=== PATIENT | female | born 1940 | race Caucasian/White ===

== ENCOUNTER 2023-05-18 11:40 | Emergency (ER) | payer OTHER, SELFPAY ==
[2023-05-18 11:48] VITALS: BP 100/66
--- NOTE | 2023-05-18 13:40 | EDRN ---
Dena PAK in room w/pt at this time.
[2023-05-18] MEDS: DELTASONE 50 MG PO (14:21)
[2023-05-18] MEDS: VALIUM 5 MG PO (14:21)
[2023-05-18 14:23] VITALS: BMI 30.6
[2023-05-18 14:25] VITALS: BP 152/71
--- NOTE | 2023-05-18 15:28 | ED.GENMED ---
History of Present Illness
General
Chief Complaint: Back Pain
Source: patient
Exam Limitations: none
Time Seen by Provider: 05/18/23 13:23
Nursing documentation reviewed up to this point in time: agreed with
Travel History
Have you had any contact with someone who has COVID-19?: No
Do you have any symptoms of coronavirus? Fever > 100 degrees, chills, cough, shortness of breath, sore throat, loss of taste or smell, muscle aches, or headache?: No
History of Present Illness
History of Present Illness:
81-year-old female with past medical history of diabetes presenting to the emergency department today with concerns of left-sided lumbar discomfort that started upon awakening 2 days ago. Has been taking Advil without relief. Denies incontinence
numbness weakness no trauma pain specifically worse with specific movements and different positioning.
Past History
Past History
ED Past Medical History: HTN and NIDDM
ED Past Surgical History: Cholecystectomy
Social History
Tobacco: Non-smoker
Alcohol: None
Drug: None
Personal:
Living: with family
Review of Systems
Review of Systems
Allergies reviewed?: Yes
All Other Systems: ROS reviewed and negative except as documented in HPI and ROS
Phy Exam
Physical Exam
Physical Exam:
GENERAL: Alert , in no apparent distress
EYE: pupils equal and reactive
NECK: Supple, no significant adenopathy.
ENT: o/p clr, mmm.
CARDIAC: Regular rate and rhythm .
LUNGS: Clear breath sounds bilaterally, no acute respiratory distress, no wheezes/rales/rhonchi
ABDOMEN: Soft, without focal tenderness, no r/g, no cvat
NEUROLOGICAL: Alert and oriented, no focal neuro deficits
SKIN: Warm and dry, skin intact.
MUSCULOSKELETAL: No edema, well perfused.
PSYCH: Normal and appropriate interaction.
Course
Orders/Labs/Results
Orders:
Orders
05/18/23 11:50
Lumbar Spine Complete, 4 View [CR Lumbar Spine Comp Min 4 Vw*] Urgent
Comment:
Reason For Exam: back pain
05/18/23 13:51
Diazepam [Valium] 5 mg PO NOW STA
Prednisone [Deltasone] 50 mg PO NOW STA
Vital Signs
Initial and Last Documented VS:
Initial Vital Signs
Temp Pulse Resp BP Pulse Ox
97.6 F 65 22 100/66 100
05/18/23 11:48 05/18/23 11:48 05/18/23 11:48 05/18/23 11:48 05/18/23 11:48
Last Documented Vital Signs
Temp Pulse Resp BP Pulse Ox
97.6 F 64 16 152/71 95
05/18/23 11:48 05/18/23 14:25 05/18/23 14:25 05/18/23 14:25 05/18/23 14:25
MDM/Problems Addressed
MDM/Problems Addressed:
83-year-old female presenting to the emergency department today with concerns of left-sided lumbar discomfort over the past 2 days. Specifically made worse with movement and positioning. Denies any bowel or bladder dysfunction numbness or weakness
to the lower extremities. Symptoms seem to be consistent with mechanical back discomfort. Patient was given Valium for muscle laxation as well as a steroid to help with inflammation.
*Critical Care Note
Total Time (30-74mins, 75-104mins- exclusive of procedures): Not Applicable
ED Attending Note
-
Portions of this chart may have been created with voice recognition software.� Occasional wrong word or��sound alike� substitutions may have occurred due to the inherent limitations of voice recognition software.
Discharge Plan
Departure
Patient Disposition: Home (Routine Discharge)
Date of Disposition: 05/18/23
Time of Disposition: 15:53
Patient with high blood pressure during this ER visit?: No
Condition: Good
Covid-19: Not Applicable
Discharge Problem:
Low back pain
Instructions: Low Back Pain (DC)
Prescriptions:
New
tizanidine [Zanaflex] 4 mg capsule
4 mg PO Q8H PRN (Reason: muscle spasticity) Qty: 7 0RF
prednisone 20 mg tablet
40 mg PO DAILY 4 Days Qty: 8 0RF
No Action
multivitamin [Multi-Day] 1 EACH tablet
1 ea PO DAILY
loratadine-pseudoephedrine [Loratadine-D] 1 EACH tablet extended release 24 hr
1 ea PO PRN PRN (Reason: allergies)
sennosides [senna] 1 TABLET tablet
2 tab PO BID 0RF
acetaminophen 325 MG tablet
650 mg PO QID 0RF
glimepiride 2 MG tablet
2 mg PO DAILY 0RF
magnesium hydroxide 30 ML suspension
30 ml PO HS 0RF
aspirin 325 MG tablet,delayed release (DR/EC)
325 mg PO DAILY 0RF
mupirocin 1 APPLIC ointment
1 applic intranasal BID Qty: 1 0RF
Rx Instructions:
use tonight 11/19/17, then stop
oxycodone 5 MG tablet
5 mg PO Q4HPRN PRN (Reason: moderate-severe pain) Qty: 60 0RF
Rx Instructions:
R NESSA
ongoing therapy
1 tab moderate pain or 2 tabs if severe
ibuprofen 200 MG tablet
400 mg PO PRN PRN (Reason: breakthru pain) Qty: 1 0RF
Rx Instructions:
TAKE WITH FOOD
DO NOT TAKE WITHIN 2H OF ASA---BLOCKS ABSORPTION
docusate sodium 100 MG capsule
100 mg PO BID Qty: 1 0RF
bisacodyl [OneLAX Bisacodyl] 10 MG suppository
10 mg [place] DAILYPRN PRN (Reason: CONSTIPATION) Qty: 1 0RF
bisacodyl 5 MG tablet,delayed release (DR/EC)
10 mg PO DAILYPRN PRN (Reason: CONSTIPATION) Qty: 1 0RF
Referrals:
Ruslan Olvera MD [Active] - Follow up in 1 week
Dana Dewitt MD [Family Provider] -
Activity Restrictions/Additional Instructions:
You came to the emergency department today with concerns of low back pain. Here you an x-ray that showed a large amount of arthritis. This could be responsible for your symptoms. Please take medications as prescribed and follow-up closely with
the back doctor for ongoing symptoms. Return to the emergency department any worsening, new or concerning symptoms.
Interventions
Interventions:
*Risk Screen - Suicide Last Done: 05/18/23 11:45
*General Assessment Last Done: 05/18/23 11:45
*Neglect/Abuse Screening Last Done: 05/18/23 11:45
*ED COVID-19 Vaccine History Last Done: 05/18/23 14:23
ED-Musculoskeletal Assessment Last Done: 05/18/23 14:23
--- NOTE | 2023-05-18 15:33 | EDRN ---
Pt ambulated w/ daughter to BR and back to recliner chair at this time. This RN informed Dena PAK that pt ambulated and pain is no longer 10+/10 w/ movement but now a 4/10 per pt.
--- NOTE | 2023-05-18 15:48 | EDRN ---
Dena PAK in room w/ pt at this time.
== END 2023-05-18 16:14 | disposition home or self-care (01) ==
LOC: EMR 11:40
PROVIDERS: EMERGENCY PHYSICIAN Emergency Medicine; FAMILY PHYSICIAN Family Medicine
DX: M54.50 Low back pain, unspecified (principal); E11.9 Type 2 diabetes mellitus without complications
CPT/HCPCS: 99283; 72110

== ENCOUNTER 2024-03-13 20:43 | Inpatient (IN) | payer OTHER, SELFPAY ==
[2024-03-13] VITALS (9 sets, daily range): BP systolic 137–168; BP diastolic 64–88; BMI 32.9; BMI 32.6
[2024-03-13 15:06] LABS: % Basophils 0.4 % (0-2); % Immature Granulocytes 0.3 % (0-0.5); % Lymphocytes 27.2 % (20.5-51.1); % Monocytes 12.3 % (1.7-9.3); % Neutrophils 58.8 % (42.2-75.2); Absolute Eosinophils 0.1 10^3/uL (0-0.7); Absolute Lymphocytes 1.9 10^3/uL (1.2-3.4); Absolute Monocytes 0.9 10^3/uL (0.1-0.6); Absolute Neutrophils 4.2 10^3/uL (1.4-6.5); Hematocrit 42.8 % (37.0-47.0); Hemoglobin 14.7 g/dL (12.0-16.0); Mean Corp Hgb Conc. 34.3 g/dL (33.0-37.0); Mean Corpuscular Hgb 30.2 pg (27.0-31.0); Mean Corpuscular Volume 87.9 fL (81.0-99.0); Mean Platelet Volume 9.3 fL (7.4-10.4); Nucleated Red Blood Cells % 0 %; Platelet Count 260 10^3/uL (130-400); Red Blood Cell Count 4.87 10^6/uL (4.20-5.40); Red Cell Dist. Width 13.4 % (11.5-14.5); White Blood Cell Count 7.1 10^3/uL (4.8-10.8)
[2024-03-13 15:23] LABS: ALT (SGPT) 27 U/L (0-35); AST (SGOT) 35 U/L (14-36); Albumin 4.1 g/dl (3.5-5.0); Alkaline Phosphatase 73 U/L (38-126); Blood Urea Nitrogen 15 mg/dl (7-17); Calcium 9.1 mg/dl (8.4-10.2); Carbon Dioxide 23 mmol/L (22-30); Chloride 99 mmol/L (98-107); Glucose 153 mg/dl (70-99); Lipase 35 U/L (23-300); Potassium 4.6 mmol/L (3.5-5.1); Sodium 132 mmol/L (135-145); Total Bilirubin 0.7 mg/dl (0.2-1.3); Total Protein 6.7 g/dl (6.3-8.2); eGFR > 60.00
--- NOTE | 2024-03-13 17:28 | ED.GENMED ---
History of Present Illness
General
Chief Complaint: Abdominal Symptoms
Time Seen by Provider: 03/13/24 17:05
History of Present Illness
History of Present Illness:
84-year-old female with history of diabetes presenting to the emergency department for vomiting and diarrhea. Patient reports symptoms for the past 4 days. Notes sick contacts with similar symptoms, believes that she has the 'GI bug '. Reports
frequency of diarrhea has decreased, last episode of vomiting was this morning. She has had overall decreased p.o. intake. Denies associated chest pain or difficulty breathing. Reports generalized abdominal discomfort, particularly in the upper
abdomen, described as burning. Denies fever. Denies any abdominal surgeries in the past. Denies additional acute medical complaints
Past History
Past History
ED Past Medical History: HTN and NIDDM
ED Past Surgical History: Cholecystectomy
Social History
Tobacco: Non-smoker
Alcohol: None
Drug: None
Personal:
Living: with family
Phy Exam
Physical Exam
Physical Exam:
General: Well-appearing, no clinical signs of dehydration, nontoxic and in no acute distress
HEENT: protecting airway
Neck: appears supple
CV: Normal heart rate, regular rhythm
Resp: No accessory muscle use, no increased work of breathing, lungs clear to auscultation bilaterally
Abd: Soft and non-distended, generalized nonfocal tenderness
Extremities: No deformities, no swelling
Neuro: alert, no focal neurologic deficit
: deferred
Rectal: deferred
Psych: Normal affect
Skin: Intact
Course
Orders/Labs/Results
Orders:
Orders
03/13/24 14:34
Electrocardiogram (*1) Urgent
Reason for Study: Abdominal Pain
EKG- Treatment ONCE
03/13/24 14:51
Complete Blood Count/With Diff Urgent
Comprehensive Metabolic Panel Urgent
Lipase Urgent
03/13/24 17:24
CT Abd/pelvis W Iv Cont Urgent
Comment:
Reason For Exam: generalized pain, suspected viral gastro
0.9% Sodium Chloride 1000 ml [Nss] 1,000 ml IV BOLUS
Famotidine [Pepcid] 20 mg IV NOW STA
Ketorolac [Toradol] 15 mg IV NOW STA
03/13/24 17:36
Urinalysis Reflex To Culture Urgent
Date Specimen was Collected: 03/13/24
Time Specimen was Collected: 17:30
Urine Microscopic Reflex Cult Urgent
Urine Culture Urgent
LAURA Source: U
Specimen Description:
Date Specimen was Collected: 03/13/24
Time Specimen was Collected: 17:30
03/13/24 17:45
Ondansetron Injectable [Zofran] 4 mg IV NOW STA
Abnormal Lab Results
03/13/24 03/13/24
14:51 17:36
Absolute Monos (auto) 0.9 H 10^3/uL
(0.1-0.6)
Monocytes % 12.3 H %
(1.7-9.3)
Sodium 132 L mmol/L
(135-145)
Glucose 153 H mg/dl
(70-99)
Urine Ketones 3+ A
(Negative)
Ur Occult Blood Reflex 3+ A
(Negative)
Urine Nitrite (Reflex) Positive A
(Negative)
Urine Bilirubin 1+ A
(Negative)
Leukocyte Esterase Rfl 2+ A
(Negative)
Urine RBC 3-6 A /HPF
(0-2)
Urine WBC (Reflex) 50-60 A /HPF
(0-5)
Urine Bacteria (Reflex) Many A
(Negative)
Urine Albumin (Reflex) 1+ A
(Neg - Trace)
03/13/24 14:51
03/13/24 14:51
Vital Signs
Initial and Last Documented VS:
Initial Vital Signs
Temp Pulse Resp BP Pulse Ox
97.9 F 79 16 168/84 99
03/13/24 14:45 03/13/24 14:45 03/13/24 14:45 03/13/24 14:45 03/13/24 14:45
Last Documented Vital Signs
Temp Pulse Resp BP Pulse Ox
97.9 F 82 14 137/79 95
03/13/24 14:45 03/13/24 18:01 03/13/24 18:01 03/13/24 18:01 03/13/24 18:01
MDM/Problems Addressed
MDM/Problems Addressed:
84-year-old female presenting for 4 days of vomiting and diarrhea. Vital signs on arrival significant for mild hypertension.
On exam patient is resting comfortably, no acute distress or discomfort. She is nontoxic in appearance. Ultimately suspect viral gastroenteritis. Lower suspicion for serious intra-abdominal process or infection, however does have generalized
nonfocal tenderness of the abdomen. Suspected soreness from vomiting and diarrhea. However given age and duration of symptoms will obtain laboratory analysis and CT imaging. Toradol administered for pain. Will also administer Pepcid with
suspected component of gastritis from emesis. Will administer fluids for suspected mild dehydration from decreased p.o. intake. Lower suspicion for C. difficile colitis, notes infrequent episodes of diarrhea, formed
17:10- Labs are unremarkable.
18:00 -patient had a large episode of emesis. Zofran administered
19:00-CT shows developing small bowel obstruction. Consistent with symptoms. Will admit to hospital.
*Critical Care Note
Total Time (30-74mins, 75-104mins- exclusive of procedures): Not Applicable
ED Attending Note
-
Portions of this chart may have been created with voice recognition software.� Occasional wrong word or��sound alike� substitutions may have occurred due to the inherent limitations of voice recognition software.
Discharge Plan
Departure
Prescriptions:
No Action
multivitamin [Multi-Day] 1 EACH tablet
1 ea PO DAILY
loratadine-pseudoephedrine [Loratadine-D] 1 EACH tablet extended release 24 hr
1 ea PO PRN PRN (Reason: allergies)
sennosides [senna] 1 TABLET tablet
2 tab PO BID 0RF
acetaminophen 325 MG tablet
650 mg PO QID 0RF
glimepiride 2 MG tablet
2 mg PO DAILY 0RF
magnesium hydroxide 30 ML suspension
30 ml PO HS 0RF
aspirin 325 MG tablet,delayed release (DR/EC)
325 mg PO DAILY 0RF
mupirocin 1 APPLIC ointment
1 applic intranasal BID Qty: 1 0RF
Rx Instructions:
use tonight 11/19/17, then stop
oxycodone 5 MG tablet
5 mg PO Q4HPRN PRN (Reason: moderate-severe pain) Qty: 60 0RF
Rx Instructions:
R NESSA
ongoing therapy
1 tab moderate pain or 2 tabs if severe
ibuprofen 200 MG tablet
400 mg PO PRN PRN (Reason: breakthru pain) Qty: 1 0RF
Rx Instructions:
TAKE WITH FOOD
DO NOT TAKE WITHIN 2H OF ASA---BLOCKS ABSORPTION
docusate sodium 100 MG capsule
100 mg PO BID Qty: 1 0RF
bisacodyl [OneLAX Bisacodyl] 10 MG suppository
10 mg AK DAILYPRN PRN (Reason: CONSTIPATION) Qty: 1 0RF
bisacodyl 5 MG tablet,delayed release (DR/EC)
10 mg PO DAILYPRN PRN (Reason: CONSTIPATION) Qty: 1 0RF
tizanidine [Zanaflex] 4 mg capsule
4 mg PO Q8H PRN (Reason: muscle spasticity) Qty: 7 0RF
prednisone 20 mg tablet
40 mg PO DAILY 4 Days Qty: 8 0RF
Referrals:
Dana Dewitt MD [Family Provider] -
Interventions
Interventions:
*Risk Screen - Suicide Last Done: 03/13/24 14:45
*General Assessment Last Done: 03/13/24 17:06
*Neglect/Abuse Screening Last Done: 03/13/24 14:45
ED- Fall Risk Assessment Last Done: 03/13/24 17:06
*ED COVID-19 Vaccine History Last Done: 03/13/24 17:06
FH-Liazuz-Iaycbagsol Assessment Last Done: 03/13/24 17:06
Discharge Date and Time
Print Language: AZERI
[2024-03-13] MEDS: NSS 1000 IV ×2 (17:36→21:27)
[2024-03-13] MEDS: PEPCID 20 MG IV (17:39)
[2024-03-13] MEDS: TORADOL 15 MG IV (17:40)
[2024-03-13 17:44] LABS: Urine Albumin 1+ (Neg - Trace); Urine Bilirubin 1+ (Negative); Urine Character Very Cloudy (Clear); Urine Color Yellow; Urine Glucose Negative (Negative); Urine Ketone 3+ (Negative); Urine Leukocyte 2+ (Negative); Urine Nitrite Positive (Negative); Urine Occult Blood 3+ (Negative); Urine Specific Gravity 1.025 (<1.030); Urine Urobilinogen 1+ (Neg - 1+)
[2024-03-13 17:50] LABS: Urine Squamous Cell 0-2 /LPF (Few)
[2024-03-13 17:52] LABS: Urine Bacteria Many (Negative); Urine White Cell 50-60 /HPF (0-5)
[2024-03-13] MEDS: ZOFRAN 4 MG IV (18:01)
--- NOTE | 2024-03-13 20:07 | HPS.HSE ---
Family Physician
-
Family Physician: Dana Dewitt
Chief Complaint
-
Abd Pain, N/V/D
History of Present Illness
Patient is an 84y F with PMH significant for DM-II who presents to ED complaining of abdominal pain and N/V/D x 4 days. Patient states that family members are also ill with GI complaints. She developed N/V/D 4 days ago. The following 2 days,
patient had increased abdominal pain and distention - but no emesis or diarrhea. She had very poor appetite and was unable to tolerate PO intake due to abdominal discomfort and nausea.
Last night and today patient had a few episodes of small volume, watery stools. She had emesis at home and again here in the ED - described as 'dark' and 'bitter'.
With ongoing symptoms and worsening abdominal pain, patient presented to the ED for further evaluation.
Patient denies any history of bowel obstructions, etc.
She denies any fevers / chills, urinary complaints, bloody stools, etc.
Medical History
Past Medical History
Past Medical History: Reports Other
Additional Past Medical History:
DM-II
Obesity
Past Surgical History: Reports Other
Additional Past Surgical History:
Cholecystectomy
Vaginal Hysterectomy
Bilateral NESSA
Bilateral TKA
Social History
Tobacco: Non-smoker
Alcohol: None
Drug: None
Family History
Family History: Not pertinent
Allergies / Home Medications
Allergies reflects when Allergies were last updated in [facility].
Home Medications with original date entered in [facility]
Allergy/Medication List:
Allergies
Allergy/AdvReac Type Severity Reaction Status Date / Time
Penicillins Allergy Severe Rash, Verified 03/13/24 14:45
Swelling
of tongue
sulfamethoxazole AdvReac Unknown Verified 03/13/24 14:45
[From Bactrim]
trimethoprim [From Bactrim] AdvReac Unknown Verified 03/13/24 14:45
Home Medications
Raspberry Herbal Supplement 1 cap PO DAILY 03/13/24
diphenhydramine 25 mg-acetaminophen 500 mg tablet (Acetaminophen PM) 1 tab PO HSPRN PRN sleep 03/13/24
glimepiride 4 mg tablet 4 mg PO DAILY 03/13/24
pioglitazone 30 mg tablet 30 mg PO DAILY 03/13/24
Review of Systems
-
History Source: Patient
A 12 point ROS was completed and negative except as noted: Yes
Constitutional: Reports Fatigue; Denies Fever or Chills
Respiratory: Denies Cough or Trouble Breathing
Cardiac: Denies Chest Pain or Palpitations
Abdomen/GI: Reports Abdominal Pain, Nausea, Vomiting, Diarrhea and Anorexia; Denies Bloody Stools or Black Stools
: Denies Dysuria or Frequency
Musculoskeletal: Denies Joint Pain or Edema
Neurological: Denies Dizzy or Headache
Physical Exam
Vital Signs
Vital Signs
Temp Pulse Resp BP Pulse Ox
97.9 F 91 21 151/64 96
03/13/24 14:45 03/13/24 19:00 03/13/24 19:00 03/13/24 19:00 03/13/24 19:00
Physical Exam
General: Other (84y F in no acute distress.)
HEENT: Moist mucous membranes and PERRLA
Respiratory: Other (Few rales at bases - otherwise clear.)
Cardiac: S1/S2 and Regular Rhythm (with ectopy); No Murmur
GI: Other (Abdomen is distended. High pitched bowel sounds. Mild tenderness diffusely without rebound / guarding.)
Musculoskeletal: No Clubbing, No Cyanosis and No Edema
Neuro: AO x 3
Laboratory Results
-
03/13/24 14:51
03/13/24 14:51
Laboratory Results
Total Bilirubin 0.7 mg/dl (0.2-1.3) 03/13/24 14:51
AST 35 U/L (14-36) 03/13/24 14:51
ALT 27 U/L (0-35) 03/13/24 14:51
Alkaline Phosphatase 73 U/L (38-126) 03/13/24 14:51
Lipase 35 U/L (23-300) 03/13/24 14:51
Impression/Plan
-
A/P: Patient is an 84y F with PMH significant for DM-II who presents to ED complaining of abdominal pain and N/V/D x 4 days.
Enteritis - Suspected Norovirus
Partial Small Bowel Obstruction
- Admit for further evaluation and treatment.
- Multiple sick contacts and initial symptoms of N/V/D with some / few loose stools persisting.
- NPO for now. IVF support, Antiemetics, etc.
- CT with dilated loops of bowel which could be consistent with enteritis; however, ? transition in the RLQ and high pitched bowel sounds, etc concerning for partial obstruction.
- Patient is continuing to pass stools so doubt complete SBO.
- Follow for improvement with supportive care.
- Consider NG decompression and Surgical evaluation if symptoms worsen or do not improve.
DM-II
- Stable. Continue to hold PO medications.
- Follow glucose and cover with SSI as needed.
- Update A1C.
DVT Prophylaxis: SCDs
Code Status: Full
[2024-03-14 03:22] VITALS: BP 126/64
--- NOTE | 2024-03-14 04:48 | PTCARENOTE ---
late entry: received pt at 2114. admitted to 2123, placed on tele #[id number]. oriented to room, call bradshaw and POC. pt verb understanding. admission assessment completed.
[2024-03-14 05:07] VITALS: BMI 33.2
[2024-03-14] MEDS: NSS 1000 IV ×2 (05:54→13:39)
[2024-03-14 07:03] LABS: Glucose - Point of Care 99 mg/dl (70-99)
[2024-03-14 07:17] LABS: Hematocrit 39.1 % (37.0-47.0); Hemoglobin 13.1 g/dL (12.0-16.0); Mean Corp Hgb Conc. 33.5 g/dL (33.0-37.0); Mean Corpuscular Hgb 30.3 pg (27.0-31.0); Mean Corpuscular Volume 90.3 fL (81.0-99.0); Mean Platelet Volume 9.7 fL (7.4-10.4); Platelet Count 237 10^3/uL (130-400); Red Blood Cell Count 4.33 10^6/uL (4.20-5.40); Red Cell Dist. Width 13.4 % (11.5-14.5); White Blood Cell Count 7.2 10^3/uL (4.8-10.8)
[2024-03-14 07:25] VITALS: BP 150/69
[2024-03-14 07:27] LABS: Blood Urea Nitrogen 15 mg/dl (7-17); Calcium 8.4 mg/dl (8.4-10.2); Carbon Dioxide 21 mmol/L (22-30); Chloride 105 mmol/L (98-107); Estimated Creatinine Clearance 61 ml/min; Glucose 98 mg/dl (70-99); Potassium 4.5 mmol/L (3.5-5.1); Sodium 136 mmol/L (135-145); eGFR > 60.00
[2024-03-14] MEDS: NOVOLOG FLEXPEN-LOW RESISTANCE SC ×3 (07:31→17:47)
--- NOTE | 2024-03-14 08:41 | W.PN.HOSP.TC ---
Today's Communication/Plan
-
See bold
Assessment / Plan
Assessment / Plan
84y F with PMH significant for DM-II who presents to ED complaining of abdominal pain and N/V/D x 4 days. Patient states that family members are also ill with GI complaints. She developed N/V/D 4 days ago. The following 2 days, patient had
increased abdominal pain and distention - but no emesis or diarrhea. She had very poor appetite and was unable to tolerate PO intake due to abdominal discomfort and nausea.
Last night and today patient had a few episodes of small volume, watery stools. She had emesis at home and again here in the ED - described as 'dark' and 'bitter'.
With ongoing symptoms and worsening abdominal pain, patient presented to the ED for further evaluation.
Patient denies any history of bowel obstructions, etc.
She denies any fevers / chills, urinary complaints, bloody stools, etc.
Acute enteritis
Acute partial Small Bowel Obstruction
- Multiple sick contacts and initial symptoms of N/V/D with some / few loose stools persisting.
- CT with dilated loops of bowel which could be consistent with enteritis; however, ? transition in the RLQ and high pitched bowel sounds, etc concerning for partial obstruction.
- Patient is continuing to pass stools so doubt complete SBO.
- Trial of clear liquid diet, IV fluids, antiemetics as needed
DM-II
- Stable. Continue to hold PO medications.
- Follow glucose and cover with SSI as needed.
- A1C 7.0
Hyponatremia
- Resolved, monitor
Obesity due to excess calories
- Affects all aspects of care
DVT Prophylaxis: Subcu Lovenox
Code Status: Full
Updated family at bedside 03/14
Total time spent to see the patient on the floor, examine the patient, review data and lab results, discuss treatment plan with patient, nursing staff around 50 minutes.
Physical Exam
General: Obese, no acute distress
HEENT: Normocephalic, Atraumatic, EOMI, MMM
Respiratory: Clear to Auscultation bilaterally
Cardiac: Normal S1/S2, Regular Rate and Rhythm
GI: Soft, Nontender, Nondistended, Normal Bowel Sounds
Extremities: No Clubbing, Cyanosis, or Edema
Neuro: Nonfocal/Grossly Intact
Psych: Calm, Cooperative
Derm: No Visible lesions
Anticipated Discharge: 24 - 48 hours
Subjective/Interval History
-
Date of Service: March 14, 2024
Nausea and vomiting resolved. Denies abdominal pain. She is passing gas. No bowel movement. No chest pain, no shortness of breath. No fever.
Objective Data
-
Labs:
Laboratory Results
03/14/24
06:52
WBC 7.2
Hgb 13.1
Hct 39.1
Plt Count 237
Sodium 136
Potassium 4.5
Chloride 105
Carbon Dioxide 21 L
BUN 15
Creatinine 0.8
Glucose 98
Calcium 8.4
Vital Signs:
Vital Signs
Temp Pulse Resp BP Pulse Ox
98.1 F 72 18 150/69 95
03/14/24 07:25 03/14/24 07:25 03/14/24 07:25 03/14/24 07:25 03/14/24 07:25
I&O
03/13/24 03/14/24 03/15/24
06:59 06:59 06:59
Intake Total 1125 / 1125
Balance 1125 / 1125
--- NOTE | 2024-03-14 10:36 | CM ---
Patient seen at bedside with & daughter
IA completed
Lives with in a 1 story home, 3 steps to enter
PLOF: Independent, no assistive device used for ambulation
DME: Walker, cane, shower chair, glucometer
Has had [facility] in past - denies rehab
Denies insecurities
PCP: Dana Dewitt
Pharmacy: [facility]
PLAN: Home, currently no needs anticipated
[2024-03-14 11:40] VITALS: BP 141/60
[2024-03-14 13:21] LABS: Glucose - Point of Care 164 mg/dl (70-99)
[2024-03-14 15:32] VITALS: BP 180/79
[2024-03-14 17:31] LABS: Glucose - Point of Care 122 mg/dl (70-99)
[2024-03-14] MEDS: LOVENOX 40 MG SC (18:01)
[2024-03-14] MEDS: TYLENOL 650 MG PO (18:05)
[2024-03-14 18:29] VITALS: BP 158/65
[2024-03-14 21:14] LABS: Glucose - Point of Care 150 mg/dl (70-99)
[2024-03-14 23:10] VITALS: BP 145/62
[2024-03-15] MEDS: NSS 1000 IV (02:13)
[2024-03-15 05:10] VITALS: BMI 33.2
[2024-03-15 08:13] LABS: Blood Urea Nitrogen 9 mg/dl (7-17); Calcium 8.4 mg/dl (8.4-10.2); Carbon Dioxide 21 mmol/L (22-30); Chloride 106 mmol/L (98-107); Estimated Creatinine Clearance 61 ml/min; Glucose 111 mg/dl (70-99); Phosphorus 3.2 mg/dl (2.5-4.5); Potassium 4.7 mmol/L (3.5-5.1); Sodium 135 mmol/L (135-145); eGFR > 60.00
[2024-03-15 08:18] LABS: Glucose - Point of Care 117 mg/dl (70-99)
[2024-03-15 08:32] VITALS: BP 152/70
[2024-03-15] MEDS: NOVOLOG FLEXPEN-LOW RESISTANCE SC ×2 (08:41→17:37)
--- NOTE | 2024-03-15 08:53 | W.PN.HOSP.TC ---
Today's Communication/Plan
-
Advance to solids for lunch
Repeat obstruction series in the afternoon
Possible discharge if tolerating lunch
Assessment / Plan
Assessment / Plan
84y F with PMH significant for DM-II who presents to ED complaining of abdominal pain and N/V/D x 4 days. Patient states that family members are also ill with GI complaints. She developed N/V/D 4 days ago. The following 2 days, patient had
increased abdominal pain and distention - but no emesis or diarrhea. She had very poor appetite and was unable to tolerate PO intake due to abdominal discomfort and nausea.
Last night and today patient had a few episodes of small volume, watery stools. She had emesis at home and again here in the ED - described as 'dark' and 'bitter'.
With ongoing symptoms and worsening abdominal pain, patient presented to the ED for further evaluation.
Patient denies any history of bowel obstructions, etc.
She denies any fevers / chills, urinary complaints, bloody stools, etc.
Acute enteritis
Acute partial Small Bowel Obstruction
- Multiple sick contacts and initial symptoms of N/V/D with some / few loose stools persisting.
- CT with dilated loops of bowel which could be consistent with enteritis; however, ? transition in the RLQ and high pitched bowel sounds, etc concerning for partial obstruction.
- Patient is continuing to pass stools so doubt complete SBO.
- Patient is currently tolerating a full liquid diet without nausea, vomiting, or abdominal pain. Advance to solids for lunch
- Repeat obstruction series in the afternoon
- Possible discharge if tolerating lunch
DM-II
- Stable. Continue to hold PO medications.
- Follow glucose and cover with SSI as needed.
- A1C 7.0
Hyponatremia
- Resolved, monitor
Obesity due to excess calories
- Affects all aspects of care
DVT Prophylaxis: Subcu Lovenox
Code Status: Full
Updated family at bedside 03/15
Total time spent to see the patient on the floor, examine the patient, review data and lab results, discuss treatment plan with patient, nursing staff around 51 minutes.
Physical Exam
General: Obese, no acute distress
HEENT: Normocephalic, Atraumatic, EOMI, MMM
Respiratory: Clear to Auscultation bilaterally
Cardiac: Normal S1/S2, Regular Rate and Rhythm
GI: Soft, Nontender, Nondistended, Normal Bowel Sounds
Extremities: No Clubbing, Cyanosis, or Edema
Neuro: Nonfocal/Grossly Intact
Psych: Calm, Cooperative
Derm: No Visible lesions
Anticipated Discharge: Within 24 hours
Subjective/Interval History
-
Date of Service: March 15, 2024
Patient tolerated her full liquid diet without nausea. No vomiting. No abdominal pain. No fever. She is passing gas. No bowel movement.
Objective Data
-
Labs:
Laboratory Results
03/15/24
07:25
Sodium 135
Potassium 4.7
Chloride 106
Carbon Dioxide 21 L
BUN 9
Creatinine 0.8
Glucose 111 H
Calcium 8.4
Vital Signs:
Vital Signs
Temp Pulse Resp BP Pulse Ox
98.2 F 71 16 152/70 94
03/15/24 08:32 03/15/24 08:32 03/15/24 08:32 03/15/24 08:32 03/15/24 08:32
I&O
03/14/24 03/15/24 03/16/24
06:59 06:59 06:59
Intake Total 5 / 1125 2179 / 2179
Balance 1125 / 1125 2179 / 2179
--- NOTE | 2024-03-15 10:48 | CM ---
CM reviewed chart, patient seen bedside on phone- reports no needs to CM upon discharge. Patient confirms she has transportation home and support at home. IMM verbally reviewed, declined copy of form, placed in chart. CM will continue to follow for
all discharge planning needs.
Plan; home no needs.
[2024-03-15 11:51] LABS: Glucose - Point of Care 181 mg/dl (70-99)
[2024-03-15 11:53] VITALS: BP 165/81
[2024-03-15] MEDS: NOVOLOG FLEXPEN-LOW RESISTANCE 1 UNITS SC (12:11)
[2024-03-15] MEDS: MIRALAX 17 GRAMS PO (13:07)
[2024-03-15] MEDS: DULCOLAX 10 MG RECTAL (13:07)
[2024-03-15] MEDS: ZOFRAN 4 MG IV (14:48)
--- NOTE | 2024-03-15 15:40 | CON.GS ---
Medical History
-
Chief Complaint: Abdominal pain, nausea, emesis
History of Present Illness:
Patient is an 84 yo F with a PMH of obesity, NIDDM, s/p vaginal hysterectomy, and s/p laparoscopic cholecystectomy who presented to with 4 to 5 days of abdominal pain, distention, nausea, vomiting. At the time she was having loose liquid stools
and attributed her symptoms to a gastroenteritis. She has multiple sick contacts who have had GI issues. She was admitted overnight and was initially passing flatus and improving. She was trialed on a clear liquid diet and then solid foods this
afternoon. Since then she has had recurrence of crampy abdominal pain as well as belching, nausea, vomiting. She continues to pass flatus. No BM since admission. She denies any prior bowel obstructions. No clear dietary indiscretion.
Past Medical History
Past Medical History: NIDDM and Other (Obesity)
Past Surgical History: Cholecystectomy (Laparoscopic cholecystectomy) and Gynecological (Vaginal hysterectomy)
Social History
Tobacco: Non-Smoker
Alcohol: None
Drug: None
Family History
Family History: Reviewed & Not Pertinent
Allergies / Home Medications
Allergy/AdvReac Type Severity Reaction Status Date / Time
Penicillins Allergy Severe Rash, Verified 03/13/24 14:45
Swelling
of tongue
sulfamethoxazole AdvReac Unknown Verified 03/13/24 14:45
[From Bactrim]
trimethoprim [From Bactrim] AdvReac Unknown Verified 03/13/24 14:45
�Medication �Instructions �Recorded �Confirmed �Type
Raspberry Herbal Supplement 1 cap PO DAILY Supplement 03/13/24 03/13/24 History
diphenhydramine 25 1 tab PO HSPRN PRN sleep 03/13/24 03/13/24 History
mg-acetaminophen 500 mg tablet
(Acetaminophen PM)
glimepiride 4 mg tablet 4 mg PO DAILY Diabetes 03/13/24 03/13/24 History
pioglitazone 30 mg tablet 30 mg PO DAILY Diabetes 03/13/24 03/13/24 History
Review of Systems
-
A 10 point review of systems was completed, and was negative except as per HPI.
Physical Exam
Vital Signs
Temp Pulse Resp BP Pulse Ox
98.5 F 75 16 165/81 96
03/15/24 11:53 03/15/24 11:53 03/15/24 11:53 03/15/24 11:53 03/15/24 11:53
03/14/24 03/15/24 03/16/24
06:59 06:59 06:59
Actual Weight 93.259 kg 93.123 kg
Body Mass Index (BMI) 33.2
Lab Results
03/14/24 06:52
03/15/24 07:25
WBC 7.2 10^3/uL (4.8-10.8) 03/14/24 06:52
Hgb 13.1 g/dL (12.0-16.0) 03/14/24 06:52
Hct 39.1 % (37.0-47.0) 03/14/24 06:52
Plt Count 237 10^3/uL (130-400) 03/14/24 06:52
Abs Immat Gran (auto) 0.0 10^3/uL (0-0.05) 03/13/24 14:51
Neutrophils % 58.8 % (42.2-75.2) 03/13/24 14:51
Physical Exam
General: Pain and Other (Uncomfortable appearing)
HEENT: Normocephalic and Anicteric
Respiratory: Non Labored Respirations
Cardiac: Regular Rhythm
GI: Soft, Tender (Mild diffuse tenderness), Distended (Tympanitic), Obese and Other (Nonperitoneal (no rebound or guarding))
Musculoskeletal: No Edema
Skin: Warm and Dry
Neuro: Nonfocal/Grossly Intact
Data Reviewed
-
Radiology: Image Personally Visualized and interpreted and Report Reviewed by me
CT Scan: Image Personally Visualized and interpreted and Report Reviewed by me
Labs: Labs Reviewed by me
Assessment / Plan
-
Patient is an 84 yo F p/w high-grade partial SBO
The natural history and pathophysiology of bowel obstructions was reviewed. Possible that a underlying gastroenteritis has set off her symptoms. Most likely causes adhesions. Failure of dietary advancement throughout the day. Nausea and
excessive burping. No worrisome signs of bowel ischemia or perforation at this time. No need for emergent surgical intervention. Recommend medical management with NGT decompression, IVF, and bowel rest. Correct electrolytes. Minimize narcotics.
All questions answered. Daughter present for encounter.
-- NGT, repeat X-ray ordered post-placement
-- NPO, IVF
-- Correct lytes, minimize narcotics
-- Pain control: Tylenol, Toradol, IV Dilaudid PRN
[2024-03-15 15:54] VITALS: BP 153/74
[2024-03-15] MEDS: NSS IV (16:49)
[2024-03-15 17:24] LABS: Glucose - Point of Care 168 mg/dl (70-99)
[2024-03-15] MEDS: LOVENOX 40 MG SC (17:47)
[2024-03-15 19:20] VITALS: BP 163/72
[2024-03-15 23:18] VITALS: BP 151/70
[2024-03-16 00:28] LABS: Glucose - Point of Care 133 mg/dl (70-99)
[2024-03-16] MEDS: NSS 1000 IV ×2 (00:40→15:09)
[2024-03-16 03:52] VITALS: BP 104/75
[2024-03-16 05:08] VITALS: BMI 32.8
[2024-03-16 07:15] VITALS: BP 148/72
[2024-03-16 07:40] LABS: Glucose - Point of Care 135 mg/dl (70-99)
--- NOTE | 2024-03-16 07:48 | W.PN.HOSP.TC ---
Today's Communication/Plan
-
see bold
Assessment / Plan
Assessment / Plan
84y F with PMH significant for DM-II who presents to ED complaining of abdominal pain and N/V/D x 4 days. Patient states that family members are also ill with GI complaints. She developed N/V/D 4 days ago. The following 2 days, patient had
increased abdominal pain and distention - but no emesis or diarrhea. She had very poor appetite and was unable to tolerate PO intake due to abdominal discomfort and nausea.
Last night and today patient had a few episodes of small volume, watery stools. She had emesis at home and again here in the ED - described as 'dark' and 'bitter'.
With ongoing symptoms and worsening abdominal pain, patient presented to the ED for further evaluation.
Patient denies any history of bowel obstructions, etc.
She denies any fevers / chills, urinary complaints, bloody stools, etc.
Acute enteritis
Acute partial Small Bowel Obstruction
- Multiple sick contacts and initial symptoms of N/V/D with some / few loose stools persisting.
- CT with dilated loops of bowel which could be consistent with enteritis; however, ? transition in the RLQ and high pitched bowel sounds, etc concerning for partial obstruction.
- Patient is continuing to pass gas so doubt complete SBO
- NG tube inserted 03/15
- Appreciate general surgery input, continue NG tube, n.p.o., IV fluids
GERD
� Start PPI IV
Asymptomatic bacteriuria
-Denies dysuria, no fever, no leukocytosis
-Monitor off antibiotics
DM-II
- Stable. Continue to hold PO medications.
- Follow glucose and cover with SSI as needed.
- A1C 7.0
Hyponatremia
- Resolved, monitor
Obesity due to excess calories
- Affects all aspects of care
DVT Prophylaxis: Subcu Lovenox
Code Status: Full
Updated daughter at bedside 03/16
Total time spent to see the patient on the floor, examine the patient, review data and lab results, discuss treatment plan with patient, nursing staff around 50 minutes.
Physical Exam
General: Obese, no acute distress
HEENT: Normocephalic, Atraumatic, EOMI, MMM
Respiratory: Clear to Auscultation bilaterally
Cardiac: Normal S1/S2, Regular Rate and Rhythm
GI: Soft, nontender, mildly distended, hypoactive bowel sounds
Extremities: No Clubbing, Cyanosis, or Edema
Neuro: Nonfocal/Grossly Intact
Psych: Calm, Cooperative
Derm: No Visible lesions
Anticipated Discharge: 24 - 48 hours
Subjective/Interval History
-
Date of Service: March 16, 2024
C/o throat pain, and burning in her esophagus. Nausea and vomiting resolved. Denies abdominal pain. No fever. Denies dysuria.
Objective Data
-
Labs:
Laboratory Results
03/16/24
07:19
Sodium Pending
Potassium Pending
Chloride Pending
Carbon Dioxide Pending
BUN Pending
Creatinine Pending
Glucose Pending
Calcium Pending
Vital Signs:
Vital Signs
Temp Pulse Resp BP Pulse Ox
98.8 F 82 18 148/72 91
03/16/24 07:15 03/16/24 07:15 03/16/24 07:15 03/16/24 07:15 03/16/24 07:15
I&O
03/15/24 03/16/24 03/17/24
06:59 06:59 06:59
Intake Total 0 / 0 360 / 360
Output Total 400 / 400
Balance 2179 -40 / -40
[2024-03-16 08:00] LABS: Blood Urea Nitrogen 9 mg/dl (7-17); Calcium 8.5 mg/dl (8.4-10.2); Carbon Dioxide 24 mmol/L (22-30); Chloride 101 mmol/L (98-107); Estimated Creatinine Clearance 61 ml/min; Glucose 151 mg/dl (70-99); Potassium 3.9 mmol/L (3.5-5.1); Sodium 134 mmol/L (135-145); eGFR > 60.00
[2024-03-16] MEDS: MIRALAX PO (09:08)
[2024-03-16] MEDS: PROTONIX IV 40 MG IV (09:09)
[2024-03-16] MEDS: NSS (PRESERVATIVE FREE) 10 ML IV (09:09)
[2024-03-16] MEDS: TORADOL 15 MG IV ×2 (09:24→15:24)
--- NOTE | 2024-03-16 10:05 | W.PN.GS2 ---
Today's Communication / Plan
-
-- Continue nasogastric tube decompression for today
Assessment / Plan
-
Patient is an 84 yo F p/w high-grade partial SBO
AVSS
WBC remains normal
Clinically improved with increased flatus production and improved abdominal exam. Recommend continued NG decompression throughout the day, tentative plan for removal tomorrow if continues to show signs of improvement.
-- NPO, NGT decompression
-- IVF
-- Pain control: Tylenol, Toradol, IV Dilaudid as needed, attempt to minimize narcotics for ileus risk
-- Okay to clamp tube for OOB and ambulation
Subjective Data
-
Date of Service: March 16, 2024
Throat and nasal irritation from NGT. Feels improved from abdominal standpoint. Less pain and distention. No nausea or vomiting. Passing increased amounts of flatus, no BM. Voiding.
Objective Data
-
Intake and Output
03/15/24 03/16/24 03/17/24
06:59 06:59 06:59
Intake Total 2180 / 2180 360 / 360
Output Total 400 / 400
Balance 2180 / 2180 -40 / -40
Intake:
Oral fluids 930 / 930
IV fluids (Total) 1250 / 1250 360 / 360
Output:
Gastrointestinal tube output ( 400 / 400
Total)
[place] Sump 400 / 400
Other:
Number of approximated SMALL 1
amounts of urine
Number of approximated MODERATE 5 1
amounts of urine
Number of approximated LARGE 1
amounts of urine
Vital Signs
Temp Pulse Resp BP Pulse Ox
98.8 F 82 18 148/72 91
03/16/24 07:15 03/16/24 07:15 03/16/24 07:15 03/16/24 07:15 03/16/24 07:15
Lab Results
03/14/24 06:52
03/16/24 07:19
Calcium 8.5 mg/dl (8.4-10.2) 03/16/24 07:19
Phosphorus 3.2 mg/dl (2.5-4.5) 03/15/24 07:25
Magnesium 2.0 mg/dl (1.6-2.3) 03/15/24 07:25
Total Bilirubin 0.7 mg/dl (0.2-1.3) 03/13/24 14:51
AST 35 U/L (14-36) 03/13/24 14:51
ALT 27 U/L (0-35) 03/13/24 14:51
Alkaline Phosphatase 73 U/L (38-126) 03/13/24 14:51
Total Protein 6.7 g/dl (6.3-8.2) 03/13/24 14:51
Albumin 4.1 g/dl (3.5-5.0) 03/13/24 14:51
Physical Exam
-
Gen: NAD
HEENT: light bilious outputs
Abd: soft, NT, less distended, obese, non-peritoneal (improved)
[2024-03-16] MEDS: CHLORASEPTIC/SORE THROAT SPRAY 2 SPRAY PO ×2 (10:44→13:09)
[2024-03-16 11:00] VITALS: BP 146/73
[2024-03-16 12:07] LABS: Glucose - Point of Care 152 mg/dl (70-99)
[2024-03-16] MEDS: LEVAQUIN 100 IV (15:09)
[2024-03-16 15:10] VITALS: BP 148/65
[2024-03-16 17:30] LABS: Glucose - Point of Care 129 mg/dl (70-99)
[2024-03-16] MEDS: LOVENOX 40 MG SC (18:26)
[2024-03-16] MEDS: DILAUDID 0.5 MG IV (21:54)
[2024-03-16 23:54] VITALS: BP 174/66
[2024-03-17 00:10] LABS: Glucose - Point of Care 115 mg/dl (70-99)
[2024-03-17] MEDS: DILAUDID 0.5 MG IV ×2 (02:28→08:34)
[2024-03-17 02:55] VITALS: BP 136/66
[2024-03-17] MEDS: NSS 1000 IV (03:35)
[2024-03-17 05:25] VITALS: BMI 32.9
[2024-03-17 05:58] LABS: Glucose - Point of Care 125 mg/dl (70-99)
[2024-03-17 07:00] LABS: % Basophils 0.3 % (0-2); % Eosinophils 0.9 % (0-6); % Immature Granulocytes 0.5 % (0-0.5); % Lymphocytes 22.9 % (20.5-51.1); % Neutrophils 63.4 % (42.2-75.2); Absolute Eosinophils 0.1 10^3/uL (0-0.7); Absolute Immature Granulocytes 0.1 10^3/uL (0-0.05); Absolute Lymphocytes 2.1 10^3/uL (1.2-3.4); Absolute Monocytes 1.1 10^3/uL (0.1-0.6); Absolute Neutrophils 5.8 10^3/uL (1.4-6.5); Hematocrit 36.6 % (37.0-47.0); Hemoglobin 12.2 g/dL (12.0-16.0); Mean Corp Hgb Conc. 33.3 g/dL (33.0-37.0); Mean Corpuscular Volume 89.9 fL (81.0-99.0); Mean Platelet Volume 9.3 fL (7.4-10.4); Nucleated Red Blood Cells % 0 %; Platelet Count 243 10^3/uL (130-400); Red Blood Cell Count 4.07 10^6/uL (4.20-5.40); Red Cell Dist. Width 13.4 % (11.5-14.5); White Blood Cell Count 9.1 10^3/uL (4.8-10.8)
[2024-03-17 07:23] LABS: Blood Urea Nitrogen 13 mg/dl (7-17); Calcium 8.1 mg/dl (8.4-10.2); Carbon Dioxide 24 mmol/L (22-30); Chloride 102 mmol/L (98-107); Estimated Creatinine Clearance 61 ml/min; Glucose 129 mg/dl (70-99); Magnesium 1.7 mg/dl (1.6-2.3); Phosphorus 3.9 mg/dl (2.5-4.5); Potassium 4.2 mmol/L (3.5-5.1); Sodium 135 mmol/L (135-145); eGFR > 60.00
[2024-03-17 08:00] VITALS: BP 145/64
--- NOTE | 2024-03-17 08:24 | W.PN.HOSP.TC ---
Today's Communication/Plan
-
see bold
Assessment / Plan
Assessment / Plan
84y F with PMH significant for DM-II who presents to ED complaining of abdominal pain and N/V/D x 4 days. Patient states that family members are also ill with GI complaints. She developed N/V/D 4 days ago. The following 2 days, patient had
increased abdominal pain and distention - but no emesis or diarrhea. She had very poor appetite and was unable to tolerate PO intake due to abdominal discomfort and nausea.
Last night and today patient had a few episodes of small volume, watery stools. She had emesis at home and again here in the ED - described as 'dark' and 'bitter'.
With ongoing symptoms and worsening abdominal pain, patient presented to the ED for further evaluation.
Patient denies any history of bowel obstructions, etc.
She denies any fevers / chills, urinary complaints, bloody stools, etc.
Acute enteritis
Acute partial Small Bowel Obstruction
- Multiple sick contacts and initial symptoms of N/V/D with some / few loose stools persisting.
- CT with dilated loops of bowel which could be consistent with enteritis; however, ? transition in the RLQ and high pitched bowel sounds, etc concerning for partial obstruction.
- Patient is continuing to pass gas so doubt complete SBO
- NG tube inserted 03/15
- Appreciate general surgery input, NG tube removed 03/17, start clear liquid diet
GERD
� Continue PPI IV
Probable pneumonia
Acute hypoxic respiratory insufficiency
Possible urinary tract infection
-Patient with fever on 03/17, chest x-ray showing progress bibasilar atelectasis, possible developing mild lower lobe pneumonia
-Started on levofloxacin 500 mg IV on 03/16
-COVID and flu negative
-Will increase to levofloxacin 750 mg IV on 03/17 to cover for pneumonia, add Flagyl to cover for aspiration
-Currently requiring 2 L of oxygen, wean as tolerated
-Encourage incentive spirometry use
DM-II
- Stable. Continue to hold PO medications.
- Follow glucose and cover with SSI as needed.
- A1C 7.0
Hyponatremia
- Resolved, monitor
Obesity due to excess calories
- Affects all aspects of care
DVT Prophylaxis: Subcu Lovenox
Code Status: Full
Updated family at bedside /
Total time spent to see the patient on the floor, examine the patient, review data and lab results, discuss treatment plan with patient, nursing staff around 51 minutes.
Physical Exam
General: Obese, no acute distress
HEENT: Normocephalic, Atraumatic, EOMI, MMM
Respiratory: Right basilar crackles
Cardiac: Normal S1/S2, Regular Rate and Rhythm
GI: Soft, nontender, mildly distended, hypoactive bowel sounds
Extremities: No Clubbing, Cyanosis
Mild edema of the hands
Neuro: Nonfocal/Grossly Intact
Psych: Calm, Cooperative
Derm: No Visible lesions
Anticipated Discharge: > 48 hours
Subjective/Interval History
-
Date of Service: March 17, 2024
Patient reports feeling better. Denies abdominal pain, denies nausea. She had some flatus yesterday, none today. No bowel movement. She also has a cough from the nasogastric tube. Denies shortness of breath. She was febrile this morning. She
also had a headache with throat pain.
Objective Data
-
Labs:
Laboratory Results
03/17/24
06:42
WBC 9.1
Hgb 12.2
Hct 36.6 L
Plt Count 243
Sodium 135
Potassium 4.2
Chloride 102
Carbon Dioxide 24
BUN 13
Creatinine 0.8
Glucose 129 H
Calcium 8.1 L
Vital Signs:
Vital Signs
Temp Pulse Resp BP Pulse Ox
98.4 F 82 16 136/66 93
03/16/24 23:54 03/17/24 02:55 03/16/24 23:54 03/17/24 02:55 03/17/24 00:34
I&O
03/16/24 03/17/24 03/18/24
06:59 06:59 06:59
Intake Total 360 / 360 1860 / 1860
Output Total 400 / 400 250 / 250
Balance -40 / -40 1610 / 1610
[2024-03-17] MEDS: NSS (PRESERVATIVE FREE) 10 ML IV (08:30)
[2024-03-17] MEDS: PROTONIX IV 40 MG IV (08:30)
[2024-03-17 10:04] LABS: NT-proBNP 3090 pg/ml
[2024-03-17 10:11] LABS: COVID-19 Antigen Negative (Negative)
--- NOTE | 2024-03-17 10:14 | W.PN.GS2 ---
Today's Communication / Plan
-
`
Assessment / Plan
-
Assessment: 84 yo F with probable partial SBO vs viral gastroenteritis
AFVSS
WBC remains normal
diminishing NGT outputs
Plan: PO challenge resuming clear liquids today
if tolerates will advance tomorrow
if return of obstructive symptoms would need oral contrast imaging study
cap IVFs
reviewed surgical tx plan with pt and her daughter at bedside. any questions addressed
Subjective Data
-
Date of Service: March 17, 2024
pt seen and examined
daughter at bedside
primary complaint is a JOSHI, sinus pressure pain and sore throat from NGT
no nausea/vomiting
occasional flatus, no recent BM
no abdominal pain
Objective Data
-
Intake and Output
03/16/24 03/17/24 03/18/24
06:59 06:59 06:59
Intake Total 360 / 360 1860 / 1860
Output Total 400 / 400 250 / 250
Balance -40 / -40 1610 / 1610
Intake:
Oral fluids 0 / 0
IV fluids (Total) 360 / 360 1710 / 1710
Amount instilled into GI Tube ( 150 / 150
Total)
[place] Sump 150 / 150
Output:
Gastrointestinal tube output ( 400 / 400 250 / 250
Total)
[place] Sump 400 / 400 250 / 250
Other:
Number of approximated SMALL 1
amounts of urine
Number of approximated MODERATE 1 3
amounts of urine
Number of approximated LARGE 1
amounts of urine
Vital Signs
Temp Pulse Resp BP Pulse Ox
99.9 F 63 18 145/64 92
03/17/24 08:50 03/17/24 08:00 03/17/24 08:00 03/17/24 08:00 03/17/24 08:00
Lab Results
03/17/24 06:42
03/17/24 06:42
Calcium 8.1 mg/dl (8.4-10.2) L 03/17/24 06:42
Phosphorus 3.9 mg/dl (2.5-4.5) 03/17/24 06:42
Magnesium 1.7 mg/dl (1.6-2.3) 03/17/24 06:42
Total Bilirubin 0.7 mg/dl (0.2-1.3) 03/13/24 14:51
AST 35 U/L (14-36) 03/13/24 14:51
ALT 27 U/L (0-35) 03/13/24 14:51
Alkaline Phosphatase 73 U/L (38-126) 03/13/24 14:51
Total Protein 6.7 g/dl (6.3-8.2) 03/13/24 14:51
Albumin 4.1 g/dl (3.5-5.0) 03/13/24 14:51
Physical Exam
-
NAD AAOx3
ABD: soft, obese, nontender on palpation and not overtly distended
NGT with light colored gastric contents in tubing line, none in canister
--- NOTE | 2024-03-17 10:30 | PTCARENOTE ---
MD and general surgery made aware of patient oral temp 100.8F taken this AM by tech, repeat ax temp taken by this RN 99.9F. Patient with new O2 requirement overnight, 92% on 2L NC. Patient denies any abd pain or trouble breathing, medicated with PRN
dilaudid for sore throat and JOSHI rated 10/10. CXR, BNP, flu/COVID swabs ordered per MD. NGT pulled by general surgery, patient started on clear liquid diet. Patient encouraged to use incentive spirometer per MD order.
[2024-03-17] MEDS: LEVAQUIN 150 IV (11:15)
[2024-03-17 11:28] LABS: Glucose - Point of Care 119 mg/dl (70-99)
[2024-03-17] MEDS: FLAGYL 500 MG 100 IV ×2 (13:01→20:16)
--- NOTE | 2024-03-17 13:31 | CM ---
Patient seen at bedside with daughter &
NGT removed this am per nursing
plan: home, currently no needs anticipated
[2024-03-17] MEDS: LASIX 20 MG IV (14:57)
[2024-03-17 15:06] VITALS: BP 165/72
[2024-03-17] MEDS: LOVENOX 40 MG SC (17:03)
[2024-03-17 17:08] LABS: Glucose - Point of Care 119 mg/dl (70-99)
[2024-03-17 21:15] LABS: Glucose - Point of Care 126 mg/dl (70-99)
[2024-03-17 23:19] VITALS: BP 163/71
[2024-03-18] MEDS: FLAGYL 500 MG 100 IV ×2 (03:33→11:32)
[2024-03-18 06:00] VITALS: BMI 32.8
[2024-03-18 07:07] LABS: Blood Urea Nitrogen 12 mg/dl (7-17); Calcium 8.4 mg/dl (8.4-10.2); Carbon Dioxide 26 mmol/L (22-30); Chloride 100 mmol/L (98-107); Estimated Creatinine Clearance 61 ml/min; Glucose 173 mg/dl (70-99); Potassium 3.3 mmol/L (3.5-5.1); Sodium 133 mmol/L (135-145); eGFR > 60.00
[2024-03-18 07:33] LABS: Glucose - Point of Care 154 mg/dl (70-99)
[2024-03-18 07:43] VITALS: BP 136/62
--- NOTE | 2024-03-18 08:27 | W.PN.HOSP.TC ---
Today's Communication/Plan
-
see bold
Assessment / Plan
Assessment / Plan
84y F with PMH significant for DM-II who presents to ED complaining of abdominal pain and N/V/D x 4 days. Patient states that family members are also ill with GI complaints. She developed N/V/D 4 days ago. The following 2 days, patient had
increased abdominal pain and distention - but no emesis or diarrhea. She had very poor appetite and was unable to tolerate PO intake due to abdominal discomfort and nausea.
Last night and today patient had a few episodes of small volume, watery stools. She had emesis at home and again here in the ED - described as 'dark' and 'bitter'.
With ongoing symptoms and worsening abdominal pain, patient presented to the ED for further evaluation.
Patient denies any history of bowel obstructions, etc.
She denies any fevers / chills, urinary complaints, bloody stools, etc.
Acute enteritis
Acute partial Small Bowel Obstruction
- Multiple sick contacts and initial symptoms of N/V/D with some / few loose stools persisting.
- CT with dilated loops of bowel which could be consistent with enteritis; however, ? transition in the RLQ and high pitched bowel sounds, etc concerning for partial obstruction.
- Patient is continuing to pass gas so doubt complete SBO
- NG tube inserted 03/15
- Appreciate general surgery input, NG tube removed 03/17, tolerating clear liquid diet
- Has had multiple bowel movements overnight, cleared for low residue diet on 03/18
GERD
� Change PPI to oral
Probable pneumonia
Acute hypoxic respiratory insufficiency
Possible urinary tract infection
-Patient with fever on 03/17, chest x-ray showing progress bibasilar atelectasis, possible developing mild lower lobe pneumonia
-Started on levofloxacin 500 mg IV on 03/16
-COVID and flu negative
-Continue levofloxacin and Flagyl day 2 to cover for aspiration pneumonia
-Currently requiring 2 L of oxygen, wean as tolerated
-Encourage incentive spirometry use
Hypokalemia
� Replete
DM-II
- Stable. Continue to hold PO medications.
- Follow glucose and cover with SSI as needed.
- A1C 7.0
Hyponatremia
- Resolved, monitor
Obesity due to excess calories
- Affects all aspects of care
DVT Prophylaxis: Subcu Lovenox
Code Status: Full
Updated family at bedside 03/17
Total time spent to see the patient on the floor, examine the patient, review data and lab results, discuss treatment plan with patient, nursing staff around 41 minutes.
Physical Exam
General: Obese, no acute distress
HEENT: Normocephalic, Atraumatic, EOMI, MMM
Respiratory: Right basilar crackles
Cardiac: Normal S1/S2, Regular Rate and Rhythm
GI: Soft, nontender, mildly distended, hypoactive bowel sounds
Extremities: No Clubbing, Cyanosis
Mild edema of the hands
Neuro: Nonfocal/Grossly Intact
Psych: Calm, Cooperative
Derm: No Visible lesions
Anticipated Discharge: Within 24 hours
Subjective/Interval History
-
Date of Service: March 18, 2024
Patient reports feeling better. Denies abdominal pain. No nausea, no vomiting. She has been tolerating her liquid diet. Denies shortness of breath. She has had multiple bowel movements overnight. Fever resolved.
Objective Data
-
Labs:
Laboratory Results
03/18/24
06:30
Sodium 133 L
Potassium 3.3 L
Chloride 100
Carbon Dioxide 26
BUN 12
Creatinine 0.8
Glucose 173 H
Calcium 8.4
Vital Signs:
Vital Signs
Temp Pulse Resp BP Pulse Ox
98.3 F 66 18 136/62 94
03/18/24 07:43 03/18/24 07:43 03/18/24 07:43 03/18/24 07:43 03/18/24 07:43
I&O
03/17/24 03/18/24 03/19/24
06:59 06:59 06:59
Intake Total 1860 / 1860 730 / 730
Output Total 250 / 250
Balance 1610 / 1610 730 / 730
[2024-03-18] MEDS: NOVOLOG FLEXPEN-LOW RESISTANCE 1 UNITS SC ×2 (08:35→11:36)
[2024-03-18] MEDS: NSS (PRESERVATIVE FREE) 10 ML IV (08:36)
[2024-03-18] MEDS: PROTONIX IV 40 MG IV (08:36)
--- NOTE | 2024-03-18 09:10 | W.PN.GS2 ---
Addendum entered and electronically signed by Olman Mcneil MD 03/18/24 09:44:
I saw and examined the patient independently.
The Flight Communications Officer's note was reviewed and I agree with the note, assessment and plan except where noted below.
Comment: 84-year-old female with likely gastroenteritis, now with return of bowel function.
Advance diet.
General Surgery signing off.
Original Note:
Today's Communication / Plan
-
Advance diet as tolerated
Assessment / Plan
-
Assessment: 84 yo F with probable partial SBO vs more likely viral gastroenteritis
Fever of 100.8, VSS
Passing stools/flatus now
No n/v and tolerating clears
Plan: Advance to [facility] as tolerated
Surgery to follow peripherally, please call with questions/concerns
Subjective Data
-
Date of Service: March 18, 2024
Patient seen and examined at bedside with Dr. Mcneil. Denies n/v. Passing flatus and had 3 stools. Tolerating liquids with return of appetite. Denies n/v.
Objective Data
-
Intake and Output
03/17/24 03/18/24 03/19/24
06:59 06:59 06:59
Intake Total 1860 / 1860 730 / 730
Output Total 250 / 250
Balance 1610 / 1610 730 / 730
Intake:
Oral fluids 0 / 0 480 / 480
IV fluids (Total) 1710 / 1710
IV piggybacks 250 / 250
Amount instilled into GI Tube ( 150 / 150
Total)
[place] Sump 150 / 150
Output:
Gastrointestinal tube output ( 250 / 250
Total)
[place] Sump 250 / 250
Other:
Number of approximated MODERATE 3 3
amounts of urine
Vital Signs
Temp Pulse Resp BP Pulse Ox
98.3 F 66 18 136/62 94
03/18/24 07:43 03/18/24 07:43 03/18/24 07:43 03/18/24 07:43 03/18/24 07:43
Lab Results
03/17/24 06:42
03/18/24 06:30
Calcium 8.4 mg/dl (8.4-10.2) 03/18/24 06:30
Phosphorus 3.9 mg/dl (2.5-4.5) 03/17/24 06:42
Magnesium 1.7 mg/dl (1.6-2.3) 03/17/24 06:42
Total Bilirubin 0.7 mg/dl (0.2-1.3) 03/13/24 14:51
AST 35 U/L (14-36) 03/13/24 14:51
ALT 27 U/L (0-35) 03/13/24 14:51
Alkaline Phosphatase 73 U/L (38-126) 03/13/24 14:51
Total Protein 6.7 g/dl (6.3-8.2) 03/13/24 14:51
Albumin 4.1 g/dl (3.5-5.0) 03/13/24 14:51
Physical Exam
-
NAD AAOx3
ABD: soft, obese, nontender on palpation and not overtly distended
[2024-03-18] MEDS: ANESTHETIC LOZENGE 1 LOZENGE PO (09:53)
[2024-03-18] MEDS: KCL ELIXIR 40 MEQ PO ×3 (09:53→23:01)
[2024-03-18] MEDS: LASIX 40 MG IV (11:34)
[2024-03-18 11:37] LABS: Glucose - Point of Care 177 mg/dl (70-99)
--- NOTE | 2024-03-18 11:56 | PTCARENOTE ---
Patient placed on standard precautions per infection prevention. Outstanding stool cx ordered per general surgery, patient denying abdominal pain/nausea at this time.
--- NOTE | 2024-03-18 12:41 | CM ---
Patient seen at bedside with .
IMM explained & signed.
PLAN: Home, no needs
to transport
[2024-03-18] MEDS: LEVAQUIN 150 IV (12:57)
[2024-03-18 14:05] VITALS: PULSE 77; O2SAT 96
--- NOTE | 2024-03-18 14:46 | PTOTSP ---
The patient ambulated in the hallway independently, offering no concerns regarding her mobility upon return home. Encouraged the patient to ambulate more on her own since she is improved since admission. No PT needs identified at this time, will
sign off.
[2024-03-18] MEDS: FLAGYL 500 MG PO ×2 (15:22→23:01)
[2024-03-18 15:43] VITALS: BP 136/65
[2024-03-18 16:48] LABS: Glucose - Point of Care 133 mg/dl (70-99)
[2024-03-18] MEDS: NOVOLOG FLEXPEN-LOW RESISTANCE SC (16:59)
[2024-03-18] MEDS: LOVENOX 40 MG SC (17:15)
[2024-03-18 21:33] LABS: Glucose - Point of Care 178 mg/dl (70-99)
[2024-03-18 23:23] VITALS: BP 131/64
[2024-03-19 06:00] VITALS: BMI 32.3
--- NOTE | 2024-03-19 07:10 | W.PN.HOSP.TC ---
Today's Communication/Plan
-
Discharge today
Assessment / Plan
Assessment / Plan
84y F with PMH significant for DM-II who presents to ED complaining of abdominal pain and N/V/D x 4 days. Patient states that family members are also ill with GI complaints. She developed N/V/D 4 days ago. The following 2 days, patient had
increased abdominal pain and distention - but no emesis or diarrhea. She had very poor appetite and was unable to tolerate PO intake due to abdominal discomfort and nausea.
Last night and today patient had a few episodes of small volume, watery stools. She had emesis at home and again here in the ED - described as 'dark' and 'bitter'.
With ongoing symptoms and worsening abdominal pain, patient presented to the ED for further evaluation.
Patient denies any history of bowel obstructions, etc.
She denies any fevers / chills, urinary complaints, bloody stools, etc.
Acute enteritis
Acute partial Small Bowel Obstruction
- Multiple sick contacts and initial symptoms of N/V/D with some / few loose stools persisting.
- CT with dilated loops of bowel which could be consistent with enteritis; however, ? transition in the RLQ and high pitched bowel sounds, etc concerning for partial obstruction.
- Patient is continuing to pass gas so doubt complete SBO
- NG tube inserted 03/15
- Appreciate general surgery input, NG tube removed 03/17, tolerating clear liquid diet
- Cleared for low residue diet on 03/18
- Tolerating her low residue diet, without any nausea, vomiting, or abdominal pain
- Stable for discharge today
- Follow-up with PCP in 1 week
GERD
� Given PPI inpatient, can stop upon discharge
Probable pneumonia
Acute hypoxic respiratory insufficiency
Possible urinary tract infection
-Patient with fever on 03/17, chest x-ray showing progress bibasilar atelectasis, possible developing mild lower lobe pneumonia
-Started on levofloxacin 500 mg IV on 03/16
-COVID and flu negative
-Hypoxia resolved, was requiring 2 L of oxygen, now on room air
�Currently on levofloxacin/Flagyl, will discharge on levofloxacin/Flagyl for 3 more days to complete a 5-day course
-Encourage incentive spirometry use
Hypokalemia
� Repleted and resolved
Hypomagnesemia
� Will give magnesium sulfate 2 g IV prior to discharge today
DM-II
- Stable. Continue to hold PO medications.
- Follow glucose and cover with SSI as needed.
- A1C 7.0
Hyponatremia
- Resolved, monitor
Obesity due to excess calories
- Affects all aspects of care
DVT Prophylaxis: Subcu Lovenox
Code Status: Full
Updated family at bedside 03/17
Physical Exam
General: Obese, no acute distress
HEENT: Normocephalic, Atraumatic, EOMI, MMM
Respiratory: Right basilar crackles
Cardiac: Normal S1/S2, Regular Rate and Rhythm
GI: Soft, nontender, mildly distended, hypoactive bowel sounds
Extremities: No Clubbing, Cyanosis
Mild bilateral lower extremity edema
Neuro: Nonfocal/Grossly Intact
Psych: Calm, Cooperative
Derm: No Visible lesions
Anticipated Discharge: Today
Subjective/Interval History
-
Date of Service: March 19, 2024
Patient is tolerating her low residue diet. Denies abdominal pain, nausea, vomiting. No chest pain, no shortness of breath. Fever resolved.
Objective Data
-
Labs:
Laboratory Results
03/19/24
06:34
Sodium Pending
Potassium Pending
Chloride Pending
Carbon Dioxide Pending
BUN Pending
Creatinine Pending
Glucose Pending
Calcium Pending
Vital Signs:
Vital Signs
Temp Pulse Resp BP Pulse Ox
99.4 F 71 20 131/64 93
03/18/24 23:23 03/18/24 23:23 03/18/24 23:23 03/18/24 23:23 03/18/24 23:23
I&O
03/18/24 03/19/24 03/20/24
06:59 06:59 06:59
Intake Total 730 / 730 1200 / 1200
Balance 730 / 730 1200 / 1200
[2024-03-19 07:15] VITALS: BP 139/61
[2024-03-19 07:58] LABS: Blood Urea Nitrogen 9 mg/dl (7-17); Calcium 8.4 mg/dl (8.4-10.2); Carbon Dioxide 24 mmol/L (22-30); Chloride 99 mmol/L (98-107); Estimated Creatinine Clearance 60 ml/min; Glucose 160 mg/dl (70-99); Magnesium 1.4 mg/dl (1.6-2.3); Potassium 3.8 mmol/L (3.5-5.1); Sodium 134 mmol/L (135-145); eGFR > 60.00
[2024-03-19 08:11] LABS: Glucose - Point of Care 145 mg/dl (70-99)
[2024-03-19] MEDS: NOVOLOG FLEXPEN-LOW RESISTANCE SC ×2 (08:31→12:41)
[2024-03-19] MEDS: MAGNESIUM SULFATE 50 IV (08:44)
[2024-03-19] MEDS: PROTONIX 40 MG PO (08:45)
[2024-03-19] MEDS: FLAGYL 500 MG PO (08:45)
[2024-03-19] MEDS: FLUSH (NSS) 2 FLUSH IV (08:45)
--- NOTE | 2024-03-19 10:28 | W.DCSUMMARY ---
Discharge Summary
Discharge Data
Date of Admission: 03/13/24
Date of Discharge: 03/19/24
-
Pending Results: No
Hospital Course
Discharge diagnosis:
Acute enteritis
Acute partial small bowel obstruction
Gastroesophageal reflux disease
Acute hypoxic respiratory insufficiency
Pneumonia
Bibasilar atelectasis
Iatrogenic fluid overload
Possible urinary tract infection
Hypokalemia
Hypomagnesemia
Hyponatremia
Type 2 diabetes
Obesity due to excess calories
Consults: General Surgery
CT abdomen and pelvis:
There are numerous dilated loops of small bowel which measure up to 3.8 cm with distal tapering/borderline transition point in the right lower quadrant. The distal small bowel is decompressed. Findings are favored to represent partial or early small
bowel obstruction. There is associated small volume free fluid in the pelvis.
Chest XR:
Mild bibasilar atelectasis. Progressed
Possible developing mild lower lobe pneumonia. Side is difficult to determine. New
Hospital course:
84-year-old female with a past medical history of diabetes and obesity presented with a 4-day history of abdominal pain, nausea, vomiting, and diarrhea. Family members were also sick with GI complaints. CT of the abdomen shows acute partial small
bowel obstruction. Patient was admitted for acute enteritis and acute partial small bowel obstruction.
Patient was treated with bowel rest, then started on a clear liquid diet. She was advanced to a regular diet, however started having nausea and abdominal pain again. She was seen in conjunction with general surgery, and had an NG tube placed.
After several days, her NG tube was removed, she was restarted on a clear liquid diet. She had bowel movements, and was advanced to solids. She tolerated solids without nausea and abdominal pain.
Patient's hospital course was complicated by acute hypoxic respiratory insufficiency secondary to pneumonia, likely from aspiration during placement of the NG tube. She may have had a urinary tract infection as well. She received levofloxacin and
Flagyl due to her penicillin allergy. Patient also had some mild iatrogenic fluid overload. She received IV Lasix. She required 2 L of oxygen, and was successfully weaned off. She will be discharged on levofloxacin and Flagyl to complete a 5
days course.
Patient is medically stable for discharge. She needs to follow-up with her primary care doctor in 1 week.
Disposition: Home self-care
Discharge planning: Required 48 minutes
Discharge Plan
-
Patient Disposition: Home (Routine Discharge)
Discharge Diagnosis/Procedures: Acute partial small bowel obstruction, probable pneumonia, possible urinary tract infection, diabetes, obesity
Condition: Good
Diet: Low Residue and Diabetic, Carb Controlled
Activity: As tolerated
Driving Restrictions: As prior to admission
Activity Restrictions/Additional Instructions:
Follow-up with your primary care doctor 1 week.
Referrals:
Dana Dewitt MD [Family Provider] - in one week
Prescriptions:
New
metronidazole 500 mg Tablet
500 mg PO TID 3 Days Qty: 9 0RF
levofloxacin 750 mg Tablet
750 mg PO NOON 3 Days Qty: 3 0RF
Continued
glimepiride 4 mg Tablet
4 mg PO DAILY
diphenhydramine-acetaminophen [Acetaminophen PM] 25-500 mg Tablet
1 tab PO HSPRN PRN (Reason: sleep)
pioglitazone 30 mg tablet
30 mg PO DAILY
Patient Comments:
patient states that she takes this BID
Raspberry Herbal Supplement
1 cap PO DAILY
Discharge Orders:
Discharge Patient (As Directed); Ordered 03/19/24
Ordered By: [place]
Discharge Date and Time
Discharge Date/Time: 03/19/24 13:33
Print Language: FRENCH
--- NOTE | 2024-03-19 11:29 | CM ---
Pt for discharge today
Has ride home
Family to assist as needed
Plan - home - no needs
[2024-03-19] MEDS: LEVAQUIN 750 MG PO (11:59)
== END 2024-03-19 13:33 | disposition home or self-care (01) | DRG 388 ==
LOC: 2 NORTH 20:43
PROVIDERS: Emergency Medicine; Radiology Neuroradiology; ADMITTING PHYSICIAN Hospitalist; ATTENDING PHYSICIAN Family Medicine; CONSULT PHYSICIAN Surgery; EMERGENCY PHYSICIAN Student in an Organized Health Care Education/Training Program; FAMILY PHYSICIAN Family Medicine
PROC: 0D9670Z Drainage of Stomach with Drainage Device, Via Natural or Artificial Opening (ICD-10-PCS; 2024-03-15)
DX: K56.51 Intestinal adhesions [bands], with partial obstruction (principal); J69.0 Pneumonitis due to inhalation of food and vomit; E87.1 Hypo-osmolality and hyponatremia; N39.0 Urinary tract infection, site not specified; J98.11 Atelectasis; A08.4 Viral intestinal infection, unspecified; E66.09 Other obesity due to excess calories; K21.9 Gastro-esophageal reflux disease without esophagitis; R06.89 Other abnormalities of breathing; R09.02 Hypoxemia; E87.6 Hypokalemia; E87.70 Fluid overload, unspecified; E83.42 Hypomagnesemia; E11.9 Type 2 diabetes mellitus without complications; I10 Essential (primary) hypertension; Z96.653 Presence of artificial knee joint, bilateral; Z96.643 Presence of artificial hip joint, bilateral; Z88.1 Allergy status to other antibiotic agents; Z88.0 Allergy status to penicillin; Z88.2 Allergy status to sulfonamides; Z90.49 Acquired absence of other specified parts of digestive tract; Z68.32 Body mass index [BMI] 32.0-32.9, adult; Z11.52 Encounter for screening for COVID-19; Z79.84 Long term (current) use of oral hypoglycemic drugs; Z90.710 Acquired absence of both cervix and uterus
CPT/HCPCS: 71046; 74018; 74022; 74177; 80048; 80053; 81003; 81015; 82962; 83036; 83690; 83735; 83880; 84100; 85025; 85027; 87045; 87046; 87077; 87086; 87186; 87427; 87502; 87811; 93005; 96361; 96372; 96374; 96375; 97161; 99285; Q9967

== ENCOUNTER 2024-06-22 20:27 | Emergency (ER) | payer OTHER, SELFPAY ==
[2024-06-22 20:28] VITALS: BMI 31.7
[2024-06-22 20:33] VITALS: BP 163/66
--- NOTE | 2024-06-22 20:41 | ED.GENMED ---
History of Present Illness
General
Chief Complaint: Chest Pain
Source: patient and spouse
Exam Limitations: none
Time Seen by Provider: 06/22/24 20:40
Nursing documentation reviewed up to this point in time: agreed with
History of Present Illness
History of Present Illness:
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 Pain has been
constant 09/22 and she has a headache. Pain is worse with deep breaths.
Denies feeling lightheaded or dizzy, denies nausea or sweating.
She was lifting logs into the log splitter with her 2-3 hours before the pain started.
Past History
Past History
ED Past Medical History: HTN and NIDDM
ED Past Surgical History: Cholecystectomy, Gynecological (hysterectomy) and Orthopedic
Social History
Tobacco: Non-smoker
Alcohol: None
Drug: None
Personal:
Living: with family
Review of Systems
Review of Systems
Allergies reviewed?: Yes
All Other Systems: ROS reviewed and negative except as documented in HPI and ROS
Constitutional: Denies fatigue
Respiratory: Denies trouble breathing
Cardiac: Reports chest pain (radiates up both sides neck); Denies diaphoresis or palpitations
ABD/GI: Denies abdominal pain or nausea
: Denies dysuria, frequency or difficulty voiding
Musculoskeletal: Reports no symptoms
Skin: Reports no symptoms
Neurological: Reports headache; Denies dizzy, weakness or numbness
Phy Exam
Physical Exam
Physical Exam:
GENERAL: No acute distress. A&Ox3.
CONSTITUTIONAL: Afebrile.
EYES: clear, conjunctivae normal
ENMT: moist mucus membranes
RESPIRATORY: Regular respirations, nonlabored, lungs clear.
CARDIOVASCULAR: Regular rate and rhythm, no murmurs, no rubs.
GI: Soft, nontender, normal BS
MUSCULOSKELETAL: Unable to reproduce pain with compression, palpation of chest wall, ribs or neck. Moves with ease. Well perfused. No edema.
SKIN: Warm, dry, pink
PSYCH: Normal mood and affect. Well kept, interactive and appropriate
NEUROLOGIC: Awake, alert and oriented. No focal neurological deficits
Scores
Heart Score for Chest Pain Patients
STEMI patient?: Not applicable
Course
Orders/Labs/Results
Orders:
Orders
06/22/24 20:28
EKG [Electrocardiogram (*1)] Urgent
Reason for Study: Chest Pain
EKG- Treatment ONCE
06/22/24 20:42
CR Chest - 2 Views Urgent
Comment:
Reason For Exam: chest pain
06/22/24 20:54
Acetaminophen [Tylenol] 1,000 mg PO NOW STA
Nitroglycerin Sublingual [Nitrostat (Sublingual)] 0.4 mg SL NOW STA
06/22/24 21:01
Complete Blood Count/With Diff Urgent
Comprehensive Metabolic Panel Urgent
Troponin I Urgent
06/22/24 22:43
Ketorolac [Toradol] 15 mg IV NOW STA
06/22/24 23:17
Troponin I Urgent
Abnormal Lab Results
06/22/24
21:01
Absolute Monos (auto) 0.8 H 10^3/uL
(0.1-0.6)
BUN 24 H mg/dl
(7-17)
Glucose 212 H mg/dl
(70-99)
06/22/24 21:01
06/22/24 21:01
Vital Signs
Initial and Last Documented VS:
Initial Vital Signs
Temp Pulse Resp BP Pulse Ox
97.6 F 78 22 163/66 98
06/22/24 20:33 06/22/24 20:33 06/22/24 20:33 06/22/24 20:33 06/22/24 20:33
Last Documented Vital Signs
Temp Pulse Resp BP Pulse Ox
97.6 F 71 14 122/58 95
06/22/24 20:33 06/23/24 00:15 06/23/24 00:15 06/23/24 00:00 06/23/24 00:15
MDM/Problems Addressed
Differential Diagnosis Includes:
musculoskeletal chest wall pain, VA, ACS
MDM/Problems Addressed:
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 Pain has been
constant 09/22 and she has a headache. Pain is worse with deep breaths.
Denies feeling lightheaded or dizzy, denies nausea or sweating.
EKG: NSR w PAC's
10:30 p.m.
CBC normal
CMP unremarkable
CXR: NAD
Troponin WNL
Headache improving after Tylenol
She was lifting logs into the log splitter with her 2-3 hours before the pain started.
Pt did not want the NTG, reasonable to hold off as most likely musculoskeletal pain
States pain in chest and neck is improving, now 06/23
11:50 a.m.
Troponin #2 normal
Pt referred to Cardiology hotline
*EKG
EKG Intrepretation Date: 06/22/24
Interpretation: normal
Heart Rate: 73
Rate: normal
Rhythm: PAC's
[place]: normal axis
Interval: normal interval
QRS Pattern: normal QRS
Ischemia: no ischemia
*Critical Care Note
Total Time (30-74mins, 75-104mins- exclusive of procedures): Not Applicable
ED Attending Note
-
Portions of this chart may have been created with voice recognition software.� Occasional wrong word or��sound alike� substitutions may have occurred due to the inherent limitations of voice recognition software.
Discharge Plan
Departure
Patient Disposition: Home (Routine Discharge)
Date of Disposition: 06/23/24
Time of Disposition: 00:09
Patient with high blood pressure during this ER visit?: No
Condition: Good
Discharge Problem:
Atypical chest pain
Instructions: Chest Pain That Is Not Caused by the Heart (DC), Costochondritis (DC), Chest Pain DCA Follow Up
Prescriptions:
No Action
glimepiride 4 mg Tablet
4 mg PO DAILY
pioglitazone 30 mg tablet
30 mg PO DAILY
Patient Comments:
patient states that she takes this BID
Raspberry Herbal Supplement
1 cap PO DAILY
Referrals:
UNKNOWN - PT DOES,NOT KNOW [Unknown Provider] -
Activity Restrictions/Additional Instructions:
As we discussed, your workup here tonight shows nothing worrisome, specifically no sign of a heart attac someone from the cardiology group will be calling you within the next 2 days to set up an appointment for more thorough cardiac evaluation.
You most likely strained your chest wall lifting logs earlier today.
Heating pad may help the pain
You can try Tylenol to see if it helps
Avoid lifting or any activity that aggravates the pain
Interventions
Interventions:
*Risk Screen - Suicide Last Done: 06/22/24 21:15
*General Assessment Last Done: 06/22/24 21:15
*Neglect/Abuse Screening Last Done: 06/22/24 21:15
*ED- Fall Risk Assessment Last Done: 06/22/24 21:15
*ED COVID-19 Vaccine History Last Done: 06/22/24 21:15
ED- Cardiac Assessment Last Done: 06/22/24 21:16
Discharge Date and Time
Print Language: [id number]
[2024-06-22 20:43] VITALS: BP 166/64
[2024-06-22 21:00] VITALS: BP 146/49
[2024-06-22] MEDS: TYLENOL 1000 MG PO (21:10)
[2024-06-22 21:14] LABS: % Basophils 0.6 % (0-2); % Immature Granulocytes 0.4 % (0-0.5); % Lymphocytes 28.9 % (20.5-51.1); % Monocytes 7.9 % (1.7-9.3); % Neutrophils 59.2 % (42.2-75.2); Absolute Basophils 0.1 10^3/uL (0-0.2); Absolute Eosinophils 0.3 10^3/uL (0-0.7); Absolute Lymphocytes 2.8 10^3/uL (1.2-3.4); Absolute Monocytes 0.8 10^3/uL (0.1-0.6); Absolute Neutrophils 5.7 10^3/uL (1.4-6.5); Hematocrit 41.1 % (37.0-47.0); Hemoglobin 13.9 g/dL (12.0-16.0); Mean Corp Hgb Conc. 33.8 g/dL (33.0-37.0); Mean Corpuscular Hgb 30.2 pg (27.0-31.0); Mean Corpuscular Volume 89.3 fL (81.0-99.0); Mean Platelet Volume 9.6 fL (7.4-10.4); Nucleated Red Blood Cells % 0 %; Platelet Count 278 10^3/uL (130-400); Red Cell Dist. Width 14.4 % (11.5-14.5); White Blood Cell Count 9.7 10^3/uL (4.8-10.8)
[2024-06-22 21:36] LABS: ALT (SGPT) 25 U/L (0-35); AST (SGOT) 32 U/L (14-36); Albumin 4.3 g/dl (3.5-5.0); Alkaline Phosphatase 91 U/L (38-126); Blood Urea Nitrogen 24 mg/dl (7-17); Calcium 9.5 mg/dl (8.4-10.2); Carbon Dioxide 24 mmol/L (22-30); Chloride 103 mmol/L (98-107); Estimated Creatinine Clearance 55 ml/min; Glucose 212 mg/dl (70-99); Potassium 4.5 mmol/L (3.5-5.1); Sodium 138 mmol/L (135-145); Total Bilirubin 0.7 mg/dl (0.2-1.3); Total Protein 7.1 g/dl (6.3-8.2); eGFR > 60.00
[2024-06-22 21:44] LABS: Troponin I < 0.012 ng/ml
[2024-06-22 22:00] VITALS: BP 128/95
[2024-06-22] MEDS: TORADOL 15 MG IV (22:47)
[2024-06-22 23:00] VITALS: BP 134/46
[2024-06-22 23:59] LABS: Troponin I < 0.012 ng/ml
[2024-06-23] VITALS: BP 122/58
== END 2024-06-23 00:28 | disposition home or self-care (01) ==
LOC: EMR 20:27
PROVIDERS: Registered Nurse; EMERGENCY PHYSICIAN Student in an Organized Health Care Education/Training Program; FAMILY PHYSICIAN Family Medicine
DX: R07.89 Other chest pain (principal); K21.9 Gastro-esophageal reflux disease without esophagitis; E11.9 Type 2 diabetes mellitus without complications; E66.9 Obesity, unspecified; I10 Essential (primary) hypertension; Z90.49 Acquired absence of other specified parts of digestive tract; Z90.710 Acquired absence of both cervix and uterus
CPT/HCPCS: 99283; 96374; 71046; 80053; 84484; 85025; 93005

== ENCOUNTER → 2024-10-04 10:11 | Outpatient (REF) | payer OTHER, SELFPAY | LOC: RAD 10:11 | PROVIDERS: ATTENDING PHYSICIAN Family Medicine; FAMILY PHYSICIAN Family Medicine | DX: R05.3 Chronic cough (principal) | CPT/HCPCS: 71046 ==

== ENCOUNTER 2024-10-21 00:36 | Emergency (ER) | payer OTHER, SELFPAY ==
--- NOTE | 2024-10-21 00:42 | ED.GENMED ---
History of Present Illness
General
Chief Complaint: Chest Pain
Time Seen by Provider: 10/21/24 00:41
History of Present Illness
History of Present Illness:
PAST MEDICAL HISTORY AND REVIEW OF OLD RECORDS
- The patient has a history of diabetes and had a postop ileus. The patient was also seen here with chest discomfort this past at time troponin was unremarkable. She was admitted here with a small bowel obstruction this past March.
Note:
CHIEF COMPLAINT(S)
Chest discomfort, cough, and difficulty breathing.
HISTORY OF PRESENT ILLNESS
The patient is an 84-year-old female who presented with symptoms that began at 7:00 PM on the day of evaluation. She reports the sudden onset of significant chest discomfort while resting on her sofa. The patient has had a persistent cough for the
past couple of weeks and opted to prop herself up because lying down aggravated the cough. She describes the chest discomfort as worsening upon taking a deep breath, a characteristic that suggests pleuritic pain, rather than pain due to a myocardial
infarction. The patient mentioned that she experienced shortness of breath associated with the discomfort. There is a known presence of a cardiac murmur, identified last week during a visit for her cough, although she was reassured about its
non-worrisome nature.
The patient had a normal chest X-ray conducted previously on an outpatient basis. She is aware of a scheduled computed tomography (CT) scan of the chest on the coming Thursday, for which she has already paid a co-pay. There was also a comment on
awaiting cardiac blood work results to further evaluate for myocardial ischemia, although the presentation seems less likely to be due to a heart attack.
SOCIAL DETERMINANTS AFFECTING HEALTH
The patient expressed concern about having already paid a $160 co-pay for an outpatient CT scan, indicating financial considerations in her healthcare management.
REVIEW OF SYSTEMS
- Respiratory: Persistent cough for two weeks, shortness of breath.
- Cardiovascular: Chest discomfort with pleuritic characteristics, known cardiac murmur.
- Musculoskeletal: Chest discomfort does not worsen upon chest palpation.
- General: No introduction of new medications mentioned.
PHYSICAL EXAM
General: Alert, no acute distress.
Skin: Warm, dry.
Head: Normocephalic, atraumatic.
Neck: Supple, trachea midline.
Eye Ears, nose, mouth and throat: Oral mucosa moist.
Cardiovascular: Normal peripheral perfusion, No edema, systolic murmur right upper sternal border
Respiratory: Respirations are non-labored, cough noted, perhaps slightly decreased breath sounds bilaterally with questionable rhonchi but otherwise fairly clear
Gastrointestinal: Abdomen nondistended.
Back: Normal range of motion, Normal alignment.
Musculoskeletal: Normal range of motion, normal strength.
Neurological: Alert and oriented to person, place, time, and situation, No focal neurological deficit observed.
Psychiatric: Cooperative, appropriate mood & affect.
PLAN
1. Obtain a CT scan to further evaluate the chest, focusing on the pulmonary arteries, and determine the potential cause of the pleuritic chest pain.
2. Administer an intravenous anti-inflammatory medication to manage the chest discomfort.
3. [employer]plane [employer] Inspector the patient about the potential to cancel the upcoming outpatient CT scan and seek reimbursement if todays evaluation makes it redundant.
4. Await results from cardiac blood work to rule out any myocardial infarction.
DIFFERENTIAL DIAGNOSIS
The Differential Diagnosis includes, in no particular order and is not limited to:
1. Pleuritis
2. Pulmonary Embolism
3. Pneumonia
4. Myocardial Infarction
5. Costochondritis
6. Aortic Stenosis
7. Heart Failure
8. Lung Cancer
9. Gastroesophageal Reflux Disease
10. Aortic Dissection
RADIOLOGY
- CT imaging personally viewed and shows no sign of PE, coronary calcifications noted. There is diffuse bilateral airway thickening with multifocal mucous plugging
EKG
- Sinus 62, first-degree AV block, no acute ST abnormality, no significant change from 06/22/2024
LABS
- CBC unremarkable, troponin unremarkable, chemistries unremarkable
UPDATE
-SUMMARY OF ENCOUNTER
The patient, an 84-year-old female, was seen in the emergency department after experiencing chest discomfort, cough, and difficulty breathing. Initial evaluations, including imaging, showed no evidence of blood clots or major concerns such as aortic
dissection. Thickening of the bronchial fiore was noted, possibly indicating bronchitis or viral infection rather than a bacterial pneumonia, given the absence of dense consolidation in imaging. The patient received ketorolac (Toradol) intravenously
for chest pain, which provided some relief, though the pain recurred. The pain worsened with deep breaths and coughing, suggesting inflammation in the lung, possibly linked to bronchitis. The differential diagnosis included possible pleuritic
inflammation. Cardiac labs were ordered and initially showed no acute changes. Further cardiac blood work was scheduled to rule out any myocardial issues. The treatment plan included considering an antibiotic, steroids, and a nebulizer treatment to
address the suspected inflammation.
DISPOSITION
Discharge.
EMERGENCY TREATMENTS ADMINISTERED
Intravenous ketorolac was administered for chest discomfort.
PLAN
1. Repeat cardiac blood work to assess for any changes indicating myocardial involvement.
2. Administer steroids and a nebulizer treatment to address lung inflammation.
3. Start an antibiotic, specifically azithromycin, considering its anti-inflammatory properties, despite the lack of clear signs of bacterial infection.
INDEPENDENT REVIEW OF LABS AND INTERPRETATION OF TESTS
My independent review of the imaging studies indicates no blood clots in the lungs and no aortic dissection. There is some thickening of the bronchial fiore, possibly due to bronchitis.
MEDICATION RECONCILIATION
1. ketorolac (Toradol) administered IV.
2. Azithromycin prescribed, considering its anti-inflammatory properties.
3. Steroid to be administered as part of discharge treatment.
MEDICAL DECISION MAKING
- Number and Complexity of Problems Addressed: Chronic conditions affecting care [None specifically mentioned] Differential diagnosis included: Pleuritis, Pulmonary Embolism, Pneumonia, Myocardial Infarction, Costochondritis, Aortic Stenosis, Heart
Failure, Lung Cancer, Gastroesophageal Reflux Disease, Aortic Dissection.
- Data:
Category 1
- My independent interpretation of imaging did not show blood clots or aortic dissection, with some thickening of the bronchial fiore noted.
- Risk:
Care was significantly affected by the social determinant of health, as the patient has financial concerns regarding the co-pay for the upcoming CT scan.
DIAGNOSIS
1. Bronchitis, unspecified - ICD-10: J40
2. Chest pain, unspecified - ICD-10: R07.9
2 troponins have been obtained and are unremarkable. Her chest discomfort is described as pleuritic. After addition of steroids, IV antibiotics, and DuoNeb she is now feeling improved. She comfortable going home.
Past History
Past History
ED Past Medical History: HTN and NIDDM
ED Past Surgical History: Cholecystectomy, Gynecological (hysterectomy) and Orthopedic
Social History
Tobacco: Non-smoker
Alcohol: None
Drug: None
Personal:
Living: with family
Phy Exam
Physical Exam
Physical Exam:
See HPI
Scores
Heart Score for Chest Pain Patients
STEMI patient?: Not applicable
Course
Orders/Labs/Results
Orders:
Orders
10/21/24 00:41
ECG [Electrocardiogram (*1)] Urgent
Reason for Study: Chest Pain
EKG- Treatment ONCE
10/21/24 00:55
Complete Blood Count/With Diff Urgent
Comprehensive Metabolic Panel Urgent
Troponin I Urgent
10/21/24 01:16
CT Chest PE Study Urgent
Comment:
Reason For Exam: pleuritic CP severe
0.9% Sodium Chloride 500 ml [Nss] 500 ml IV BOLUS
Ketorolac [Toradol] 15 mg IV NOW STA
10/21/24 02:57
Acetaminophen [Tylenol] 1,000 mg PO NOW STA
Azithromycin 500 mg/250 ml [Zithromax Infusion] 500 mg in 250 ml IV NOW
Ipratropium/Albuterol Sulfate [Duoneb] 3 ml INH R NOW STA
MethylPREDNISolone PF [Solu-Medrol Pf] 125 mg IV NOW STA
10/21/24 04:02
Troponin I Urgent
Abnormal Lab Results
10/21/24
00:55
MCHC 32.8 L g/dL
(33.0-37.0)
Absolute Monos (auto) 0.9 H 10^3/uL
(0.1-0.6)
BUN 31 H mg/dl
(7-17)
Glucose 132 H mg/dl
(70-99)
10/21/24 00:55
10/21/24 00:55
Vital Signs
Initial and Last Documented VS:
Initial Vital Signs
Pulse Resp
65 17
10/21/24 00:48 10/21/24 00:48
Last Documented Vital Signs
Temp Pulse Resp BP Pulse Ox
36.9 C 75 20 131/58 92
10/21/24 02:49 10/21/24 05:00 10/21/24 05:00 10/21/24 05:00 10/21/24 05:00
*Pulse Oximetry
Patient hypoxic: no
*Critical Care Note
Total Time (30-74mins, 75-104mins- exclusive of procedures): Not Applicable
ED Attending Note
-
Portions of this chart may have been created with voice recognition software.� Occasional wrong word or��sound alike� substitutions may have occurred due to the inherent limitations of voice recognition software.
Discharge Plan
Departure
Patient Disposition: Home (Routine Discharge)
Date of Disposition: 10/21/24
Time of Disposition: 05:01
Patient with high blood pressure during this ER visit?: Yes
Discharge Problem:
Bronchitis
Instructions: Chest Pain DCA Follow Up
Prescriptions:
New
prednisone 50 mg tablet
50 mg PO DAILY Qty: 4 0RF
azithromycin 250 mg tablet
250 mg PO DAILY Qty: 4 0RF
albuterol sulfate [Ventolin HFA] 90 mcg/actuation HFA aerosol inhaler
2 puff inhalation Q6H PRN (Reason: shortness of breath or wheezing) Qty: 8.5 0RF
No Action
glimepiride 4 mg Tablet
4 mg PO DAILY
pioglitazone 30 mg tablet
30 mg PO DAILY
Patient Comments:
patient states that she takes this BID
Raspberry Herbal Supplement
1 cap PO DAILY
Referrals:
Dana Dewitt MD [Family Provider, Family Practice]
Eliezer Xavier MD [Active, Cardiology]
Activity Restrictions/Additional Instructions:
Your symptoms may be related to a bad case of bronchitis. Your white blood cell count is top normal at 10.4. 2 sets of cardiac blood work showed no sign of heart attack. The CAT scan of your lungs showed no blood clot but does show some airway
thickening with mucous. We can try antibiotics for the possibility of bacterial bronchitis however oftentimes bronchitis tends to be viral. I am also sending a prescription for steroids and an inhaler. I think would be a good idea for you to also
follow-up with resource manager due to the relatively new murmur that may be consistent with aortic stenosis.
Interventions
Interventions:
*Risk Screen - Suicide Last Done: 10/21/24 00:49
*General Assessment Last Done: 10/21/24 01:00
*Neglect/Abuse Screening Last Done: 10/21/24 00:49
*ED- Fall Risk Assessment Last Done: 10/21/24 00:49
*ED COVID-19 Vaccine History Last Done: 10/21/24 00:49
*Nursing Disposition Last Done: 10/21/24 05:04
ED- Cardiac Assessment Last Done: 10/21/24 01:00
Discharge Date and Time
Print Language: ARABIC
[2024-10-21 00:49] VITALS: BP 142/75
[2024-10-21 00:59] VITALS: BMI 31.8
[2024-10-21 01:00] VITALS: BP 144/62
[2024-10-21 01:03] LABS: Hematocrit 39.0 % (37.0-47.0); Hemoglobin 12.8 g/dL (12.0-16.0); Mean Corp Hgb Conc. 32.8 g/dL (33.0-37.0); Mean Corpuscular Volume 89.7 fL (81.0-99.0); Nucleated Red Blood Cells % 0 %; Platelet Count 279 10^3/uL (130-400); Red Cell Dist. Width 13.4 % (11.5-14.5)
[2024-10-21] MEDS: TORADOL 15 MG IV (01:21)
[2024-10-21] MEDS: NSS 500 IV (01:23)
[2024-10-21 01:24] LABS: ALT (SGPT) 23 U/L (0-35); AST (SGOT) 25 U/L (14-36); Albumin 4.1 g/dl (3.5-5.0); Alkaline Phosphatase 85 U/L (38-126); Blood Urea Nitrogen 31 mg/dl (7-17); Calcium 9.0 mg/dl (8.4-10.2); Carbon Dioxide 26 mmol/L (22-30); Chloride 107 mmol/L (98-107); Estimated Creatinine Clearance 50 ml/min; Glucose 132 mg/dl (70-99); Potassium 4.5 mmol/L (3.5-5.1); Sodium 139 mmol/L (135-145); Total Protein 7.1 g/dl (6.3-8.2); eGFR 55.90
[2024-10-21 01:28] LABS: Troponin I < 0.012 ng/ml
[2024-10-21 02:00] VITALS: BP 151/67
[2024-10-21 03:00] VITALS: BP 148/57
[2024-10-21] MEDS: DUONEB 3 ML INH (03:14)
[2024-10-21] MEDS: ZITHROMAX INFUSION 250 IV (03:14)
[2024-10-21] MEDS: SOLU-MEDROL PF 125 MG IV (03:14)
[2024-10-21] MEDS: TYLENOL 1000 MG PO (03:14)
[2024-10-21 04:00] VITALS: BP 123/52
[2024-10-21 04:43] LABS: Troponin I < 0.012 ng/ml
[2024-10-21 05:00] VITALS: BP 131/58
== END 2024-10-21 05:15 | disposition home or self-care (01) ==
LOC: EMR 00:36
PROVIDERS: EMERGENCY PHYSICIAN Emergency Medicine; FAMILY PHYSICIAN Family Medicine
DX: J40 Bronchitis, not specified as acute or chronic (principal); E11.9 Type 2 diabetes mellitus without complications; I10 Essential (primary) hypertension; R01.1 Cardiac murmur, unspecified; I44.0 Atrioventricular block, first degree; Z79.84 Long term (current) use of oral hypoglycemic drugs
CPT/HCPCS: 99284; 96365; 96375 ×2; 94640; 71275; 80053; 84484; 85025; 93005; Q9967

== ENCOUNTER → 2024-11-09 16:54 | Outpatient (REF) | payer OTHER, SELFPAY | LOC: RCS 16:54 | PROVIDERS: FAMILY PHYSICIAN Family Medicine | DX: R01.1 Cardiac murmur, unspecified (principal) | CPT/HCPCS: 93306 ==

== ENCOUNTER → 2025-03-04 09:44 | Outpatient (REF) | payer OTHER, SELFPAY | LOC: RAD 09:44 | PROVIDERS: ATTENDING PHYSICIAN Physician Assistant; FAMILY PHYSICIAN Family Medicine | DX: H69.93 Unspecified Eustachian tube disorder, bilateral (principal) | CPT/HCPCS: 70480 ==